=== PATIENT | female | born 1995 | race Caucasian/White ===

== ENCOUNTER 2019-10-04 17:59 | Inpatient (IN) | payer OTHER, SELFPAY ==
[2019-10-04] VITALS (8 sets, daily range): BP systolic 92–125; BP diastolic 44–74; PULSE 73–85; TEMP 37; BMI 23.8
--- NOTE | 2019-10-04 18:30 | LDADM ---
This patient, Dinorah Tellez, was admitted to Labor/Delivery/Recovery 108 on 10/04/19 at 17:59. Plans for labor, pain management and were discussed with patient. Patient/family oriented to hospital policies and general routines including ID bracelet, bed and alarms, visiting hours, pain management, procedures, bathroom and other care routines, personal items, smoking policy, room service/diet and guest tray routines, security routines, and visiting hours. Patient/Family are encouraged to report perceived risks to care and to ask questions if they do not understand what they are told or what they should do. See OBIX for further documentation.
[2019-10-04] MEDS: DINOPROSTONE 10 MG VAG INSERT VAGINAL (18:57)
[2019-10-04 18:59] LABS: Basophils Percent Auto 0.2 % (0.2-1.2); Eosinophils Absolute Auto 0.1 K/mm3 (0-0.3); Eosinophils Percent Auto 1.6 % (0-4.4); Hematocrit 35.9 % (37.0-47.0); Hemoglobin 12.1 g/dL (12.0-15.0); Immature Granulocyte Absolute 0.09 K/mm3 (0.00-0.031); Lymphocytes Absolute Auto 1.68 K/mm3 (0.9-3.2); Lymphocytes Percent Auto 19.5 % (18.3-44.2); Mean Corpuscular HGB Conc 33.7 g/dl (32-36); Mean Corpuscular Hemoglobin 31.4 pg (26-34); Mean Corpuscular Volume 93.2 fl (80-100); Mean Platelet Volume 10.4 fl (7.4-10.4); Monocytes Absolute Auto 0.5 K/mm3 (0.1-0.6); Monocytes Percent Auto 5.3 % (2.6-8.5); Neutrophils Absolute Auto 6.2 K/mm3 (1.3-6.7); Neutrophils Percent Auto 72.4 % (45.5-73.1); Platelet Count Result 278 k/mm3 (150-375); Red Blood Count 3.85 M/mm3 (4.2-5.4); Red Cell Distribution Width 13.3 % (11.5-14.5); White Blood Count 8.6 K/mm3 (4.5-10.0)
[2019-10-05] VITALS (195 sets, daily range): BP systolic 81–135; BP diastolic 39–91; PULSE 48–120; TEMP 36.6; O2SAT 97–100
[2019-10-05] MEDS: LACTATED RINGERS 1,000 ML 125 ML IV CONT ×5 (07:40→21:46)
--- NOTE | 2019-10-05 07:42 | PM.IMHP ---
H&P: HPI History of Present Illness Chief complaint: induction Narrative: Dinorah Tellez is a 24 year old female at 40 weeks and 3 days gestation presenting for elective term induction of labor. DOing well, feels some contractions. No leaking of fluid. Feels good movement. course uncomplicated to this point. Review of Systems Constitutional: Constitutional: Reports no additional constitutional complaints, Denies body ache(s), Denies chills, Denies fatigue and Denies weakness Eyes: Eyes: Denies blurry vision ENT: Denies nasal congestion Cardiovascular: Cardiovascular: Denies chest pain and Denies lightheadedness Respiratory: Respiratory: Denies chest congestion, Denies cough and Denies dyspnea Gastrointestinal: Gastrointestinal: Denies abdominal pain, Denies nausea and Denies vomiting Genitourinary: Genitourinary: Denies nocturia and Denies dysuria Musculoskeletal: Musculoskeletal: Denies myalgias Neurologic: Denies headache(s) Psychiatric: Psychiatric: Denies anxiety [facility] Family History Family History (Updated 09/03/19 @ 13:09 by Gal Lockhart RN) Other Unknown family medical history Social History Social History Smoking status: Never smoker Substance use: never Gender identity (if verbalized by the patient): Female Spiritual care concerns: No Meds Home Medications and Allergies Home Medications Medication Instructions Recorded Confirmed Type PNV cmb#95-ferrous fumarate-FA 1 tablet PO DAILY 09/03/19 09/03/19 History [] Allergies Allergy/AdvReac Type Severity Reaction Status Date / Time No Known Allergies Allergy Mild Unverified 05/11/09 19:13 Vital Signs Vital Signs - 24 hr 10/04/19 19:00 10/04/19 19:02 10/04/19 19:15 Temperature 37.0 C Pulse Rate 83 85 Blood Pressure 123/71 123/73 10/04/19 19:30 10/04/19 19:46 10/04/19 20:01 Temperature Pulse Rate 85 80 83 Blood Pressure 125/59 L 123/60 93/44 L 10/04/19 20:15 10/04/19 20:30 10/05/19 00:50 Temperature Pulse Rate 78 73 80 Blood Pressure 92/47 L 114/74 112/66 10/05/19 01:00 10/05/19 04:47 10/05/19 05:00 Temperature Pulse Rate 80 75 74 Blood Pressure 110/66 111/60 110/67 10/05/19 05:15 10/05/19 05:30 10/05/19 05:45 Temperature Pulse Rate 80 84 76 Blood Pressure 105/64 110/65 110/64 10/05/19 06:00 10/05/19 06:15 10/05/19 06:30 Temperature Pulse Rate 73 72 77 Blood Pressure 104/53 L 105/51 L 111/65 10/05/19 06:45 10/05/19 07:00 Temperature Pulse Rate 79 79 Blood Pressure 106/62 114/65 Exam Const: General: comfortable and no acute distress Resp: Effort & Inspection: normal respiratory effort Auscultation: clear to auscultation bilaterally Cardio: Rate: regular rate GI: GI Palp: Yes Soft to palpation and No Tenderness to palpation present (GI) : Other: Cevix fingetip/70% effaced Skin: General skin exam: normal color Psych: Mental Status: mental status grossly normal H&P: Results Labs Labs: Short CBC 10/04/19 Range/Units 18:27 WBC 8.6 (4.5-10.0) K/mm3 Hgb 12.1 (12.0-15.0) g/dL Hct 35.9 L (37.0-47.0) % Plt Count 278 (150-375) k/mm3 Assessment and Plan Assessment and plan (1) Elective induction of labor planned: Status: Acute Assessment and Plan: Pitocin per protocol for induction of labor Pain management as requested AROM when indicated
[2019-10-05 09:23] LABS: Rapid Plasma Reagin Non-Reactive (NonReactive)
--- NOTE | 2019-10-05 14:36 | WPDANESEPPF ---
Anes - Initial Pre Proc Eval Date/Time: 10/05/19 14:36 Surgeon: Leo David MD Pre Op Diagnosis: induction Patient Data Age: 24 Gender: F Height: 5 ft 4 in Weight: 63 kg Last Vital Signs Temp 36.6 C 10/05/19 12:26 Pulse 85 10/05/19 14:34 BP 116/62 10/05/19 14:34 Pulse Ox 100 10/05/19 14:33 Allergies Allergy/AdvReac Type Severity Reaction Status Date / Time No Known Allergies Allergy Mild Unverified 05/11/09 19:13 Home Medications Medication Instructions Recorded Confirmed Type PNV cmb#95-ferrous fumarate-FA 1 tablet PO DAILY 09/03/19 09/03/19 History [] Laboratory Tests 10/04/19 10/04/19 10/04/19 18:27 18:27 18:27 WBC 8.6 K/mm3 K/mm3 (4.5-10.0) RBC 3.85 M/mm3 L M/mm3 (4.2-5.4) Hgb 12.1 g/dL g/dL (12.0-15.0) Hct 35.9 % L % (37.0-47.0) MCV 93.2 fl fl (80-100) MCH 31.4 pg pg (26-34) MCHC 33.7 g/dl g/dl (32-36) RDW 13.3 % % (11.5-14.5) Plt Count 278 k/mm3 k/mm3 (150-375) MPV 10.4 fl fl (7.4-10.4) Immature Gran % (Auto) 1.0 % H % (0-0.5) Neut % (Auto) 72.4 % % (45.5-73.1) Lymph % (Auto) 19.5 % % (18.3-44.2) [place] % (Auto) 5.3 % % (2.6-8.5) Eos % (Auto) 1.6 % % (0-4.4) Baso % (Auto) 0.2 % % (0.2-1.2) Lymph # (Auto) 1.68 K/mm3 K/mm3 (0.9-3.2) [place] # (Auto) 0.5 K/mm3 K/mm3 (0.1-0.6) Eos # (Auto) 0.1 K/mm3 K/mm3 (0-0.3) Baso # (Auto) 0.0 K/mm3 K/mm3 (0.0-0.1) Abs Immat Gran (auto) 0.09 K/mm3 H K/mm3 (0.00-0.031) Absolute Neuts (auto) 6.2 K/mm3 K/mm3 (1.3-6.7) Absolute Nucleated RBC 0.0 K/mm3 K/mm3 (0.0-0.012) Nucleated RBC % 0.0 % % (0.0-0.2) RPR Non-reactive (NonReactive) Blood Type O Positive Antibody Screen Negative Patient hx anesthesia problems: none Family hx anesthesia problems: none PMFSH Family History Family History Other Unknown family medical history Social History Social History Smoking status: Never smoker Substance use: never Gender identity (if verbalized by the patient): Female Spiritual care concerns: No Anes - Eval Final PreProcedure Day of Procedure 10/05/19 14:36 Patient weight: normal Neurological: alert and oriented ASA classification: II Emergent: no Anesthetic plan: proceed Anesthesia type and monitoring: regional epidural and standard monitoring Informed Consent: The patient's anesthetic plan and its attendant risks and benefits were discussed with the patient/family/POA. Questions were solicited and answers provided to the satisfaction of the patient/family/POA.
[2019-10-06] VITALS (100 sets, daily range): BP systolic 92–136; BP diastolic 43–102; PULSE 83–177; RESP 16–18; TEMP 36.8–39.7; O2SAT 79–100
[2019-10-06] MEDS: AMPICILLIN 2 GM/NS 100 ML 2 GM/100 ML BAG IVPB (02:27)
[2019-10-06] MEDS: ONDANSETRON INJ 4 MG/2 ML VIAL IV PUSH (03:19)
[2019-10-06] MEDS: AMPICILLIN 1 GM/NS 50 ML 1 GM/50 ML BAG IVPB (06:29)
[2019-10-06] MEDS: ACETAMINOPHEN 500 MG TABLET 1000 MG (07:02)
[2019-10-06] MEDS: BENZOCAINE 20% AER SPR (*SP) 56 GM CAN 1 SPRAY TOPICAL (08:09)
[2019-10-06] MEDS: WITCH HAZEL 40 PADS 1 PAD TOPICAL (08:09)
--- NOTE | 2019-10-06 11:21 | OBPPTRN ---
Patient transferred to post room #285 via W/C. Support person present. Oriented to unit, room, information board, rooming in, admission packet and security measures. Patient verbalizes understanding.
--- NOTE | 2019-10-06 20:33 | OP_ITS ---
DATE OF PROCEDURE: 10/06/2019 PROCEDURE: Normal spontaneous vaginal delivery. PRE-DELIVERY DIAGNOSES: 1. A 40-week term gestation. 2. Chorioamnionitis. POST-DELIVERY DIAGNOSES: 1. A 40-week term gestation. 2. Chorioamnionitis. 3. Normal spontaneous vaginal delivery. ANESTHESIA: Epidural. ESTIMATED BLOOD LOSS: 300 mL. FINDINGS: 1. Single live male born on October 06, 2019 at 07:06 a.m. Weight 7 pounds 6 ounces. Apgars 7 and 8. 2. Meconium-stained fluid. 3. Second-degree perineal laceration. SPECIMEN: Placenta LACERATIONS: Second-degree perineal lacerations repaired with 2-0 Vicryl. BRIEF HISTORY: A 24-year-old G1 at 40 weeks and 3 days' gestation initially presented for elective induction of labor with Cervidil use for cervical ripening followed by Pitocin. The patient spiked a fever suspected chorioamnionitis. Antibiotics were started. The patient progressed to complete dilation. DESCRIPTION OF PROCEDURE: Once the patient was noted to be complete and ready to push, the labor bed was broken down and the patient's legs were put in stirrups for support with contractions and maternal efforts. The presented in OA position. Nuchal cord was noted and was easily reduced at the perineum. Gentle downward traction applied. Anterior shoulder delivered without any incident, followed by the posterior shoulder, followed by the rest of the body. The was then placed on mother's abdomen. Meconium-stained fluid was noted. The cord was clamped and cut. Cord blood was collected. Placenta was delivered with gentle downward traction on the umbilical cord. Fundal massage was applied. Bleeding started to slow down. An exam was performed to identify any lacerations. A second-degree perineal laceration was noted. This was repaired with 2-0 Vicryl. Local lidocaine was used for a local anesthetic. After repair was completed, good hemostasis was noted. The patient tolerated the procedure well and is resting in the labor room in stable condition. All sponge and instrument counts were correct at the end of the procedure. D I MT: Maylin BARNETT
[2019-10-07] MEDS: IBUPROFEN 600 MG TABLET PO ×2 (05:24→17:51)
[2019-10-07 05:51] LABS: Hematocrit 31.3 % (37.0-47.0); Hemoglobin 10.5 g/dL (12.0-15.0)
[2019-10-07 07:40] VITALS: BP 106/57; PULSE 78; RESP 16; TEMP 36.8; O2SAT 99
--- NOTE | 2019-10-07 08:11 | WPDANLDPN2 ---
Anes-Prog Note L&D Date/Time: 10/07/19 08:11 Comfortable throughout: labor and delivery Neuraxial method: epidural Epidural/Spinal procedure site: clean & non-tender Neuro status: Neuro function grossly intact. Cardiovascular status: normal Respiratory status: normal Airway patency: baseline Mental status: baseline Post-Op hydration status: normal Vital Signs: Last Vital Signs Temp 98.9 F 10/06/19 20:05 Pulse 103 H 10/06/19 20:05 Resp 18 10/06/19 20:05 BP 101/46 L 10/06/19 20:05 Pulse Ox 98 10/06/19 20:05 Patient feedback: Patient satisfied with anesthetic care.
[2019-10-07] MEDS: WITCH HAZEL 40 PADS 1 PAD TOPICAL (09:17)
[2019-10-07] MEDS: MULTIVIT/MIN/PREN/FOL AC/IRON TABLET 1 TAB PO (09:17)
--- NOTE | 2019-10-07 11:52 | PM.OBPNVD ---
OB - PN: Subj Subjective Date/time seen: 10/07/19 11:52 Interval history: 24yo s/p on 10/05. Doing well, some cramping. Lochia is decreasing. Bottle feeding. Tolerating diet. No issues/complaints Patient comments: no complaints and pain well controlled baby status: doing well feeding status: exclusively bottle feeding OB - PN: Obj Data Labs CBC & Chem 7: 10/07/19 05:21 Labs: Laboratory Results - last 24 hr 10/07/19 05:21 Hgb 10.5 L Hct 31.3 L OB - PN A/P Assessment and Plan (1) (normal spontaneous vaginal delivery): Code(s): O80 - Encounter for full-term uncomplicated delivery Status: Acute Assessment and Plan: routine care pain management ambulate Time Spent With Patient Time: Total time spent is greater than 50% in coordination of care (as documented) at patient's floor/unit and/or counseling patient: Review of Systems Review of Systems: All systems reviewed & are unremarkable except as noted in HPI and below Exam Const: General: comfortable, no acute distress, alert and awake Orientation/consciousness: patient oriented x3 Resp: Effort & Inspection: normal respiratory effort Cardio: Rate: regular rate GI: Other: soft, nondistended, nontender, fundus firm Psych: Appearance: grossly normal Mental Status: mental status grossly normal Affect: normal affect Attitude: cooperative Judgement: Good judgement present (Psych)
--- NOTE | 2019-10-08 09:46 | PM.OBDSVD ---
DS: Diagnosis Admitting Diagnosis Admitting Diagnosis: Encounter for full-term uncomplicated delivery Discharge Diagnosis (1) (normal spontaneous vaginal delivery): Code(s): O80 - Encounter for full-term uncomplicated delivery Status: Acute OB - DS: Summary OB Procedures : None OB Procedures Intrapartum: Spontaneous Vag Delivery OB Procedures: : None Peripartum Data Delivery Method: Natural Vaginal Laceration description: Perineal - 2nd Degree complications: none Status at Discharge Functional status at discharge: independent ambulation Overall status at discharge: patient is progressing back to baseline Time Spent with Patient Time attestation: Total time spent providing and/or coordinating discharge services: Exam Const: General: comfortable, no acute distress, alert and awake Orientation/consciousness: patient oriented x3 Resp: Effort & Inspection: normal respiratory effort Cardio: Rate: regular rate GI: Inspection: non-distended GI Palp: Yes Soft to palpation Psych: Appearance: grossly normal Mental Status: mental status grossly normal Affect: normal affect Attitude: cooperative Thought content: Yes Normal thought content present Judgement: Good judgement present (Psych) DS: Data Data Completed and Pending Pending studies at discharge: Pending at discharge 10/06/19 11:30 Surgical [PTH] Routine Discharge Plan Discharge Attending physician on discharge: Yanet Boo Discharging Clinician: Yanet Boo Patient Disposition: Home, Self-Care Activity: as tolerated Diet: regular Patient Instructions: Antibiotic Form Stand Alone Forms: General Discharge Information Follow-up/Referrals: Yanet Boo DO [Physician] - Discharge Medications: New polysaccharide iron complex 150 mg iron Capsule 150 mg PO BIDWM Qty: 60 RF: 0 docusate sodium 100 mg Capsule 100 mg PO BID PRN (Reason: Constipation) Qty: 60 RF: 0 ibuprofen 600 mg Tablet 600 mg PO Q6H PRN (Reason: Cramping) Qty: 90 RF: 0 Continued PNV cmb#95-ferrous fumarate-FA [] 28 mg iron- 800 mcg Tablet 1 tablet PO DAILY RF: 0 Date of admission: 10/04/19 17:59 Primary Care Provider: UNKNOWN,DOCTOR Admitting Provider: Leo David Attending physician on admission: Leo David
[2019-10-09 08:21] VITALS: BP 104/61; PULSE 82; RESP 18; TEMP 36.7
== END 2019-10-08 11:19 | disposition home or self-care (01) | DRG 805 ==
LOC: ANHLDR 10-05 13:24 → ANHOB2 10-07 11:46 → ANHLDR 10-09 12:01 → ANHOB2 10-09 12:01
PROVIDERS: Admitting Provider Obstetrics & Gynecology; Visit Provider Obstetrics & Gynecology
DX: O77.0 Labor and delivery complicated by meconium in amniotic fluid (principal); O41.1230 Chorioamnionitis, third trimester, not applicable or unspecified; Z37.0 Single live birth; Z3A.40 40 weeks gestation of pregnancy; O70.1 Second degree perineal laceration during delivery
CPT/HCPCS: 36415; 85014; 85018; 85025; 86592; 86850; 86900; 86901; 88307; A9270; J0131; J0290; J2405; J2590; J2795; J7120

== ENCOUNTER 2021-06-18 17:15 | Inpatient (IN) | payer OTHER, SELFPAY ==
[2021-06-18] VITALS (69 sets, daily range): BP systolic 94–129; BP diastolic 39–103; PULSE 33–95; TEMP 37.1–37.2; O2SAT 80–100; BMI 23.4
[2021-06-18 18:01] LABS: Basophils Percent Auto 0.4 % (0.2-1.2); Eosinophils Absolute Auto 0.1 K/mm3 (0-0.3); Eosinophils Percent Auto 0.9 % (0-4.4); Hemoglobin 12.7 g/dL (12.0-15.0); Immature Granulocyte Absolute 0.07 K/mm3 (0.00-0.031); Immature Granulocyte Percent A 0.8 % (0-0.5); Lymphocytes Absolute Auto 1.58 K/mm3 (0.9-3.2); Lymphocytes Percent Auto 18.5 % (18.3-44.2); Mean Corpuscular HGB Conc 34.3 g/dl (32-36); Mean Corpuscular Hemoglobin 32.7 pg (26-34); Mean Corpuscular Volume 95.4 fl (80-100); Mean Platelet Volume 9.7 fl (7.4-10.4); Monocytes Absolute Auto 0.3 K/mm3 (0.1-0.6); Monocytes Percent Auto 3.5 % (2.6-8.5); Neutrophils Absolute Auto 6.5 K/mm3 (1.3-6.7); Neutrophils Percent Auto 75.9 % (45.5-73.1); Platelet Count Result 238 k/mm3 (150-375); Red Blood Count 3.88 M/mm3 (4.2-5.4); Red Cell Distribution Width 13.2 % (11.5-14.5); White Blood Count 8.5 K/mm3 (4.5-10.0)
--- NOTE | 2021-06-18 18:02 | LDADM ---
This patient, Dinorah Tellez, was admitted to Labor/Delivery/Recovery 109 on 06/18/21 at 17:15. Plans for labor, pain management and were discussed with patient. Patient/family oriented to hospital policies and general routines including ID bracelet, bed and alarms, pain management, procedures, bathroom and other care routines, personal items, smoking policy, room service/diet and guest tray routines, infant security routines, call light and visiting hours. Patient/Family are encouraged to report perceived risks to care and to ask questions if they do not understand what they are told or what they should do. See OBIX for further documentation.
[2021-06-18] MEDS: LACTATED RINGERS 1,000 ML 125 ML IV CONT ×3 (18:35→23:54)
[2021-06-18] MEDS: OXYTOCIN 30 UNITS/NS 500 ML 30 UNITS/500 ML BAG IV CONT (18:41)
--- NOTE | 2021-06-18 20:28 | P.HP_ITS ---
H&P: HPI History of Present Illness Date/Time: 06/18/21 20:25 Dinorah is a 25yo @ 39.0wks (MICKI 06/[birth year]) who presents for elective induction of labor. She reports good movements. Irregular contractions. No VB or LOF. She has had regular care. Her is complicated by: - Varicella non-immune - Elevated glucola; normal 3hr OGTT - Request for sterilization (desires laparoscopic salpingectomy) - Mild anemia on iron daily Chief Complaint: induction of labor Review of Systems Review of Systems: All systems reviewed & are unremarkable except as noted in HPI and below (HPI) [facility] Family History Family History Other Unknown family medical history Social History Social History Smoking status: Never smoker Additional smoking assessment comments: FOB vapes but not around the child Substance use: never Gender identity (if verbalized by the patient): Female Spiritual care concerns: No Meds Home Medications and Allergies Home Medications Medication Instructions Recorded Confirmed Type PNV cmb#95-ferrous fumarate-FA 1 tablet PO DAILY 09/03/19 06/18/21 History [] docusate sodium 100 mg PO BID PRN #60 cap 10/07/19 06/18/21 Rx ibuprofen 600 mg PO Q6H PRN #90 tablet 10/07/19 06/18/21 Rx polysaccharide iron complex 150 mg PO BIDWM #60 cap 10/07/19 06/18/21 Rx Allergies Allergy/AdvReac Type Severity Reaction Status Date / Time No Known Allergies Allergy Mild Verified 06/18/21 18:05 Exam Const: General: cooperative, healthy appearing, comfortable and no acute distress Resp: Effort & Inspection: normal respiratory effort Cardio: Rate: regular rate GI: GI Palp: No abdominal tenderness and Yes Soft to palpation : Other: FHT's: 130's/ mod vel/ + accels/ no decels - cat 1 TOCO: irregular ctx's Cervix: 3/50/-2 Membranes: AROM, clear 2014 Presentation: cephalic Skin: General skin exam: normal color Neuro: General: patient oriented x3 Extrem: General: normal to inspection Psych: Appearance: grossly normal Affect: normal affect Attitude: cooperative Assessment and Plan Assessment and plan (1) Elective induction of labor planned: Status: Acute (2) : Qualifiers: Weeks of gestation: 39 weeks Qualified Code(s): Z3A.39 - 39 weeks gestation of Code(s): Z34.90 - Encounter for supervision of normal , unspecified, unspecified trimester Status: Acute Additional Plan - Admit to L&D for elective IOL - Pitocin per protocol - Continuous monitoring - Anesthesia consult PRN pain - GBS negative - LSC bilateral salpingectomy planned for
--- NOTE | 2021-06-18 20:29 | WPDHPUPDATE1 ---
History and Physical Update Update Date/Time: 06/18/21 20:29 History and Physical has been reviewed, including an updated exam of the patient. There are NO changes in the patient's condition. Risks, benefits, and alternatives have been discussed and questions answered. Patient agrees to proceed with procedure.
--- NOTE | 2021-06-18 21:00 | WPDANESEPPF ---
Anes - Initial Pre Proc Eval Procedure: labor epidural Date/Time: 06/18/21 21:00 Surgeon: Leo David MD Pre Op Diagnosis: labor pain Pre Op Diagnosis: IOL Patient Data Age: 25 Gender: F Height: 1.6 m Weight: 60 kg Last Vital Signs Temp 37.2 C 06/18/21 20:23 Pulse 80 06/18/21 20:58 BP 122/68 06/18/21 20:58 Pulse Ox 98 06/18/21 20:58 Allergies Allergy/AdvReac Type Severity Reaction Status Date / Time No Known Allergies Allergy Mild Verified 06/18/21 18:05 Home Medications Medication Instructions Recorded Confirmed Type PNV cmb#95-ferrous fumarate-FA 1 tablet PO DAILY 09/03/19 06/18/21 History [] docusate sodium 100 mg PO BID PRN #60 cap 10/07/19 06/18/21 Rx ibuprofen 600 mg PO Q6H PRN #90 tablet 10/07/19 06/18/21 Rx polysaccharide iron complex 150 mg PO BIDWM #60 cap 10/07/19 06/18/21 Rx Laboratory Tests 06/18/21 06/18/21 06/18/21 17:47 17:47 17:47 WBC 8.5 K/mm3 K/mm3 (4.5-10.0) RBC 3.88 M/mm3 L M/mm3 (4.2-5.4) Hgb 12.7 g/dL g/dL (12.0-15.0) Hct 37.0 % % (37.0-47.0) MCV 95.4 fl fl (80-100) MCH 32.7 pg pg (26-34) MCHC 34.3 g/dl g/dl (32-36) RDW 13.2 % % (11.5-14.5) Plt Count 238 k/mm3 k/mm3 (150-375) MPV 9.7 fl fl (7.4-10.4) Immature Gran % (Auto) 0.8 % H % (0-0.5) Neut % (Auto) 75.9 % H % (45.5-73.1) Lymph % (Auto) 18.5 % % (18.3-44.2) [place] % (Auto) 3.5 % % (2.6-8.5) Eos % (Auto) 0.9 % % (0-4.4) Baso % (Auto) 0.4 % % (0.2-1.2) Lymph # (Auto) 1.58 K/mm3 K/mm3 (0.9-3.2) [place] # (Auto) 0.3 K/mm3 K/mm3 (0.1-0.6) Eos # (Auto) 0.1 K/mm3 K/mm3 (0-0.3) Baso # (Auto) 0.0 K/mm3 K/mm3 (0.0-0.1) Abs Immat Gran (auto) 0.07 K/mm3 H K/mm3 (0.00-0.031) Absolute Neuts (auto) 6.5 K/mm3 K/mm3 (1.3-6.7) Absolute Nucleated RBC 0.0 K/mm3 K/mm3 (0.0-0.012) Nucleated RBC % 0.0 % % (0.0-0.2) RPR Pending Blood Type O Positive Antibody Screen Negative Patient hx anesthesia problems: none Family hx anesthesia problems: none Results Review: All pre-operative results and documents have been reviewed as part of the pre-operative evaluation. [facility] Family History Family History Other Unknown family medical history Social History Social History Smoking status: Never smoker Additional smoking assessment comments: FOB vapes but not around the child Substance use: never Gender identity (if verbalized by the patient): Female Spiritual care concerns: No Anes - Eval Final PreProcedure Day of Procedure 06/18/21 21:00 Patient weight: thin Heart: regular rate and rhythm Lungs: clear to auscultation and normal air movement Airway: Mallampati scale Neurological: alert and oriented ASA classification: II Emergent: no Anesthetic plan: proceed Anesthesia type and monitoring: regional epidural and standard monitoring Results Review: All pre-operative results and documents have been reviewed as part of the pre-operative evaluation. Informed Consent: The patient's anesthetic plan and its attendant risks and benefits were discussed with the patient/family/POA. Questions were solicited and answers provided to the satisfaction of the patient/family/POA.
[2021-06-19] VITALS (37 sets, daily range): BP systolic 78–145; BP diastolic 34–114; PULSE 59–195; RESP 16–18; TEMP 36.3–37.7; O2SAT 89–100
--- NOTE | 2021-06-19 01:14 | PM.OBPRVD ---
OB - Delivery Note Procedure Delivery date: 06/19/21 events: Labor Induction Intrapartal events: Precipitous Labor < 3 hours Induction method: per pitocin protocol Delivery augmentation: rupture of membranes Delivery monitor: external FHT and external uterine Route of delivery: Laceration Description: Periurethral (right) and Perineal - 1st Degree Delivery repair: vicryl Specimen: No Quantitative Blood Loss (ml): 150 Anesthesia type: Epidural Disposition: floor [place] Baby Date of : 06/19/[birth year] Time of : 00:56 Weeks of gestation at delivery: 39 Infant gender: Male Weight (pounds): 7 Weight (ounces): 9 presentation: vertex position: Left Occiput Anterior Placenta delivery description: Expressed cord vessel description: 3 Vessels and Delayed Cord Clamping score one minute: 8 score five minutes: 9 Narrative: Dinorah rapidly progressed from 4 to completely dilated in less than 2 hours. She had strong desire to push. She pushed with good maternal effort for approximately 5 minutes. She delivered the head over intact perineum. No nuchal cord was palpated. She easily delivered the 's shoulders and body without complication. The was immediately placed skin to skin and stimulated, he then had spontaneous cry. Delayed cord clamping was performed. The umbilical cord was then clamped and cut. With Pitocin running and gentle downward traction on the cord, the placenta delivered without complications. The patient was examined and a first-degree perineal and right periurethral lacerations were noted. They were repaired in the normal fashion using 2-0 Vicryl. Bimanual massage was performed and good uterine tone with minimal bleeding was noted. Sponge, lap, instrument, and needle counts were correct at the end of the procedure. Mom and baby were left in the birthing suite in stable condition.
[2021-06-19] MEDS: OXYTOCIN 30 UNITS/NS 500 ML 30 UNITS/500 ML BAG 125 UNITS IV CONT (01:39)
[2021-06-19] MEDS: ONDANSETRON INJ 4 MG/2 ML VIAL IV PUSH (02:18)
--- NOTE | 2021-06-19 03:37 | PC.NURSE ---
Patient transferred to post room #284 via wheelchair. Support person present. Oriented to unit, room, information board, rooming in, admission packet and security measures. Patient verbalizes understanding.
[2021-06-19 06:11] LABS: Rapid Plasma Reagin Non-Reactive (NonReactive)
--- NOTE | 2021-06-19 07:38 | WPDANLDPN2 ---
Anes-Prog Note L&D Date/Time: 06/19/21 07:38 Comfortable throughout: labor and delivery Neuraxial method: epidural Epidural/Spinal procedure site: clean & non-tender Neuro status: Neuro function grossly intact. Cardiovascular status: normal Respiratory status: normal Airway patency: baseline Mental status: baseline Post-Op hydration status: normal Vital Signs: Last Vital Signs Temp 36.3 C L 06/19/21 03:50 Pulse 73 06/19/21 03:50 Resp 16 06/19/21 03:50 BP 110/62 06/19/21 03:50 Pulse Ox 100 06/19/21 01:07 Pain score (VAS): 0 I/O: Intake & Output 06/18/21 06/18/21 06/19/21 15:59 23:59 07:59 Intake Total 1999 Balance 1999 Post-procedural complaints: none Patient feedback: Patient satisfied with anesthetic care.
[2021-06-19] MEDS: IBUPROFEN 600 MG TABLET PO ×2 (08:26→18:47)
[2021-06-20 00:45] VITALS: BP 96/62; PULSE 60; RESP 18; TEMP 36.4; O2SAT 100
[2021-06-20] MEDS: IBUPROFEN 600 MG TABLET PO (04:48)
[2021-06-20 05:17] LABS: Hematocrit 34.3 % (37.0-47.0); Hemoglobin 11.4 g/dL (12.0-15.0)
--- NOTE | 2021-06-20 07:07 | PM.OBPNVD ---
OB - PN: Subj Subjective Date/time seen: 06/20/21 07:05 PPD#1 Dinorah reports doing well today. She reports her pain is controlled. Her bleeding is [employer]. She has tolerated regular diet, voided, passed gas, and ambulated. She is bottle feeding. She would like to go home today. She sade CP, SOB, BARRY, vision change, fever, chills, N/v, dizziness or palpitations. OB - PN: Obj Data Labs CBC & Chem 7: 06/20/21 04:44 Labs: Laboratory Results - last 24 hr 06/20/21 04:44 Hgb 11.4 L Hct 34.3 L OB - PN A/P Assessment and Plan (1) (normal spontaneous vaginal delivery): Code(s): O80 - Encounter for full-term uncomplicated delivery Status: Acute Plan day: 1 Plan: routine care and discharge home Comments: - f/u in 4 weeks - Pelvic rest and take meds as prescribed - ER return precautions: fever, bleeding, n/v/abd pain, HTN Time Spent With Patient Time: Total time spent is greater than 50% in coordination of care (as documented) at patient's floor/unit and/or counseling patient: Review of Systems Review of Systems: All systems reviewed & are unremarkable except as noted in HPI and below (HPI) Exam Const: General: cooperative, healthy appearing, comfortable and no acute distress Resp: Effort & Inspection: normal respiratory effort Auscultation: clear to auscultation bilaterally Cardio: Rate: regular rate GI: Inspection: non-distended GI Palp: No abdominal tenderness and Yes Soft to palpation Auscultation: normal bowel sounds : Other: fundus firm Skin: General skin exam: normal color Neuro: General: patient oriented x3 Extrem: General: normal to inspection Psych: Appearance: grossly normal Affect: normal affect Attitude: cooperative
[2021-06-20 07:35] VITALS: BP 108/63; PULSE 67; RESP 16; TEMP 37.1; O2SAT 97
[2021-06-21 08:46] VITALS: BP 113/71; PULSE 74; RESP 16; TEMP 36.8; O2SAT 99
--- NOTE | 2021-06-24 08:40 | PM.OBDSVD ---
DS: Admitting Diagnosis Discharge Date 06/20/21 Admitting Diagnosis induction of labor DS: Discharge Diagnosis Discharge Diagnosis (1) (normal spontaneous vaginal delivery): Code(s): O80 - Encounter for full-term uncomplicated delivery Status: Acute OB - DS: Summary OB Procedures : Ultrasound OB Procedures Intrapartum: Spontaneous Vag Delivery OB Procedures: : None Peripartum Data Delivery Method: Natural Vaginal Laceration Description: Periurethral and Perineal - 1st Degree complications: none [place] 1: Gender: Male Disposition of : home Status at Discharge Functional status at discharge: independent ambulation Overall status at discharge: patient is back to baseline Time Spent with Patient Time attestation: Total time spent providing and/or coordinating discharge services: Exam Const: General: cooperative, healthy appearing, comfortable and no acute distress Resp: Effort & Inspection: normal respiratory effort Auscultation: clear to auscultation bilaterally Cardio: Rate: regular rate GI: Inspection: normal to inspection and non-distended GI Palp: No abdominal tenderness and Yes Soft to palpation Auscultation: normal bowel sounds : Other: fundus firm Skin: General skin exam: normal color Neuro: General: patient oriented x3 Extrem: General: normal to inspection Psych: Appearance: grossly normal Affect: normal affect Attitude: cooperative Discharge Plan Discharge Attending physician on discharge: Arianna Joshi Discharging Clinician: Arianna Joshi Anticipated Discharge Date/Time: 06/20/21 11:00 Patient Disposition: Home, Self-Care Activity: may shower and pelvic rest Diet: as tolerated and regular Discharge Instructions: Education: Mom and Baby Guide Given to: Mother Follow-Up: Call your delivering provider's office for an appointment to be seen in: 4 Weeks Mom and baby should come to the [facility] for the follow-up appointment. Appointment Date/Time: June 21, 2021 at 9:00 am What to expect at your follow-up visit: Blood Pressure Check Physical Assessment Call [phone] if you are unable to keep your appointment time. BREAST CARE: * Wear a snug supportive bra. * For engorgement discomfort: Bottle Feeding: * May apply ice packs EPISIOTOMY/PERINEAL CARE: * Until bleeding stops, use your harini bottle after urinating * Change your pad frequently throughout the day * You may take sitz baths several times a day (fill your bathtub with warm water and soak for 20 minutes.) Do NOT bathe in the water * No tub baths until seen by your physician - You may shower ACTIVITY: * Rest as much as possible. * Do not exercise or lift anything heavier than your baby (such as laundry or other children.) * Avoid stairs or driving as much as possible. * Do not put anything into the vagina. No douching, tampons, or sexual activity until seen by physician. NOTIFY PHYSICIAN IF YOU HAVE ANY QUESTIONS OR IF ANY OF THE FOLLOWING SYMPTOMS OCCUR: * If your episiotomy or incision becomes red, swollen, or more painful than what you have experienced in the hospital. * If your vaginal bleeding becomes foul smelling. * If your vaginal bleeding becomes more heavy than a period or if your bleeding changes from pink to bright red. However, you may pass an occasional walnut-sized clot once or twice for the first week . * If you experience a sharp, shooting pain in you calves. * If you discover a hard, reddened area on your breast or if you experience flu-like symptoms. DIET: * Eat regular, well-balanced meals. * Drink plenty of fluids daily. If , drink to thirst. Stand Alone Forms: General Discharge Information Follow-up/Referrals: Arianna Joshi MD [Physician] - 4 Weeks Discharge Medications: New acetaminophen [Map
== END 2021-06-20 11:15 | disposition home or self-care (01) | DRG 807 ==
LOC: ANHOB2 06-20 09:39 → ANHLDR 06-21 10:36 → ANHOB2 06-21 10:36
PROVIDERS: Admitting Provider Obstetrics & Gynecology; PCP Physician Assistant; Visit Provider Obstetrics & Gynecology
DX: O62.3 Precipitate labor (principal); Z37.0 Single live birth; O99.02 Anemia complicating childbirth; D64.9 Anemia, unspecified; O70.0 First degree perineal laceration during delivery; O71.82 Other specified trauma to perineum and vulva; O76 Abnormality in fetal heart rate and rhythm complicating labor and delivery; Z3A.39 39 weeks gestation of pregnancy
CPT/HCPCS: 36415; 85014; 85018; 85025; 86592; 86850; 86900; 86901; A9270; J2405; J2590; J2795; J7120

== ENCOUNTER 2023-04-04 11:15 | Outpatient (RCR) | payer BC, MEDICAID, SELFPAY | END 2023-05-20 23:59 | disposition home or self-care (01) | LOC: ANHLAB 11:15 | PROVIDERS: PCP Physician Assistant; Visit Provider Obstetrics & Gynecology | DX: N92.6 Irregular menstruation, unspecified (principal) | CPT/HCPCS: 36415; 84702 ==

== ENCOUNTER 2023-04-04 11:17 | Outpatient (CLI) | payer BC, SELFPAY ==
[2023-04-04 12:06] LABS: Basophils Percent Auto 0.4 % (0.2-1.2); Eosinophils Absolute Auto 0.1 K/mm3 (0-0.3); Eosinophils Percent Auto 1.7 % (0-4.4); Hematocrit 34.4 % (37.0-47.0); Hemoglobin 11.6 g/dL (12.0-15.0); Immature Granulocyte Absolute 0.02 K/mm3 (0.00-0.031); Immature Granulocyte Percent A 0.4 % (0-0.5); Lymphocytes Absolute Auto 1.38 K/mm3 (0.9-3.2); Lymphocytes Percent Auto 26.2 % (18.3-44.2); Mean Corpuscular HGB Conc 33.7 g/dl (32-36); Mean Corpuscular Hemoglobin 31.2 pg (26-34); Mean Corpuscular Volume 92.5 fl (80-100); Mean Platelet Volume 9.6 fl (7.4-10.4); Monocytes Absolute Auto 0.1 K/mm3 (0.1-0.6); Monocytes Percent Auto 2.7 % (2.6-8.5); Neutrophils Absolute Auto 3.6 K/mm3 (1.3-6.7); Neutrophils Percent Auto 68.6 % (45.5-73.1); Platelet Count Result 213 k/mm3 (150-375); Red Blood Count 3.72 M/mm3 (4.2-5.4); Red Cell Distribution Width 13.8 % (11.5-14.5); White Blood Count 5.3 K/mm3 (4.5-10.0)
[2023-04-04 12:56] LABS: HIV 1/2 Ab P24 Ag Result Negative (Negative)
[2023-04-04 14:58] LABS: Hepatitis B Surface Antigen Negative (Negative); Rubella IgG Antibody 21.2 IU/ML
[2023-04-04 17:06] LABS: Rapid Plasma Reagin Non-Reactive (NonReactive)
== END 2023-04-04 11:18 | disposition home or self-care (01) ==
PROVIDERS: PCP Physician Assistant; Visit Provider Obstetrics & Gynecology
DX: Z34.90 Encounter for supervision of normal pregnancy, unspecified, unspecified trimester (principal); Z3A.00 Weeks of gestation of pregnancy not specified
CPT/HCPCS: 36415; 84702; 85025; 86592; 86644; 86703; 86747; 86762; 86787; 86850; 86900; 86901; 87086; 87088; 87340; G0432

== ENCOUNTER 2023-06-17 09:13 | Outpatient (CLI) | payer BC, SELFPAY ==
[2023-06-17 11:01] LABS: Basophils Percent Auto 0.5 % (0.2-1.2); Eosinophils Absolute Auto 0.1 K/mm3 (0-0.3); Eosinophils Percent Auto 1.7 % (0-4.4); Hematocrit 33.5 % (37.0-47.0); Hemoglobin 10.8 g/dL (12.0-15.0); Immature Granulocyte Absolute 0.05 K/mm3 (0.00-0.031); Immature Granulocyte Percent A 0.8 % (0-0.5); Lymphocytes Absolute Auto 1.06 K/mm3 (0.9-3.2); Lymphocytes Percent Auto 16.1 % (18.3-44.2); Mean Corpuscular HGB Conc 32.2 g/dl (32-36); Mean Corpuscular Volume 96.3 fl (80-100); Mean Platelet Volume 9.9 fl (7.4-10.4); Monocytes Absolute Auto 0.2 K/mm3 (0.1-0.6); Monocytes Percent Auto 3.5 % (2.6-8.5); Neutrophils Absolute Auto 5.1 K/mm3 (1.3-6.7); Neutrophils Percent Auto 77.4 % (45.5-73.1); Platelet Count Result 239 k/mm3 (150-375); Red Blood Count 3.48 M/mm3 (4.2-5.4); Red Cell Distribution Width 13.8 % (11.5-14.5); White Blood Count 6.6 K/mm3 (4.5-10.0)
[2023-06-17 11:12] LABS: Glucose 1 Hour PP 50gm Dose 124 mg/dL
[2023-06-17 11:51] LABS: HIV 1/2 Ab P24 Ag Result Negative (Negative)
== END 2023-06-17 09:14 | disposition home or self-care (01) ==
LOC: ANHLAB 09:15
PROVIDERS: PCP Physician Assistant; Visit Provider Obstetrics & Gynecology
DX: Z34.90 Encounter for supervision of normal pregnancy, unspecified, unspecified trimester (principal)
CPT/HCPCS: 36415; 82947; 85025; 86703; G0432

== ENCOUNTER 2023-09-09 05:27 | Inpatient (IN) | payer BC, SELFPAY ==
[2023-09-09] VITALS (179 sets, daily range): BP systolic 84–150; BP diastolic 32–109; PULSE 25–247; RESP 18; TEMP 36.1–36.9; O2SAT 76–100
--- NOTE | 2023-09-09 05:43 | LDADM ---
This patient, Dionrah Tellez, was admitted to Labor/Delivery/Recovery 104 on 09/09/23 at 05:27. Plans for labor, pain management and were discussed with patient. Patient/family oriented to hospital policies and general routines including ID bracelet, bed and alarms, visiting hours, pain management, procedures, bathroom and other care routines, personal items, smoking policy, room service/diet and guest tray routines, security routines, and visiting hours. Patient/Family are encouraged to report perceived risks to care and to ask questions if they do not understand what they are told or what they should do. See OBIX for further documentation.
--- NOTE | 2023-09-09 06:33 | PM.IMHP ---
H&P: HPI History of Present Illness Date/Time: 09/09/23 06:33 Chief Complaint: induction of labor Narrative: Dinorah is a 27yo @ 39.3wks who presents for elective induction of labor. She reports irregular contractions. Good movements. NO VB or LOF. Her is complicated by: - Desires bilateral salpingectomy Review of Systems Constitutional: Constitutional: Denies chills, Denies fever(s) and Denies headache(s) Eyes: Eyes: Denies change in vision ENT: Denies headache(s) Cardiovascular: Cardiovascular: Denies chest pain and Denies dyspnea Respiratory: Respiratory: Denies dyspnea Genitourinary: Genitourinary: Denies abnormal vaginal bleeding and Denies vaginal discharge Neurologic: Denies headache(s) Psychiatric: Psychiatric: Denies anxiety and Denies depression [facility] Family History Family History Father Diabetes mellitus Social History Social History Smoking status: Never smoker Additional smoking assessment comments: FOB vapes but not around the child Alcohol intake: never Substance use: never Substance use type: does not use Do You Feel Safe in your Home?: Yes Lack of Transportation: No Lack of Food: Never True Current Housing: I Have Housing Concerned About Future Housing: No Difficulty Paying Gas/Electric Bills: No Difficulty Paying for Meds: No Currently Unemployed: No Education: High School Diploma/GED Difficulty w/ Childcare or Family Care: No Living arrangements: other Additional living arrangements comments: Occupation/Education: occupation Additional occupation/education comments: self employed Gender identity (if verbalized by the patient): Female Sexual Orientation (if Verbalized by the Patient): Straight or Heterosexual Spiritual care concerns: No Meds Home Medications and Allergies Home Medications Medication Instructions Recorded Confirmed Type vitamin-ferrous fumarate 1 cap PO DAILY 04/03/23 09/03/23 History 65 mg iron-folic acid 1 mg capsule docusate sodium 100 mg capsule 100 mg PO DAILY 08/13/23 09/03/23 History (Dulcolax Stool Softener (docusate)) ferrous sulfate 325 mg (65 mg 325 mg PO DAILY 08/13/23 09/03/23 History iron) tablet Allergies Allergy/AdvReac Type Severity Reaction Status Date / Time No Known Allergies Allergy Mild Verified 09/03/23 13:27 Exam Const: General: cooperative, healthy appearing, comfortable and no acute distress Nutritional Appearance: obese Orientation/consciousness: patient oriented x3 Resp: Effort & Inspection: normal respiratory effort Cardio: Rate: regular rate GI: GI Palp: No abdominal tenderness : Other: FHT's: 120's/ mod vel/ + accels/ no decels - cat 1 TOCO: irregular ctxs Cervix: 3.5/30/-2 Membranes: AROM, clear 0730 Presentation: cephalic Skin: General skin exam: normal color Neuro: General: patient oriented x3 Extrem: General: normal to inspection Psych: Appearance: grossly normal Affect: normal affect Attitude: cooperative Assessment and Plan Assessment and plan (1) Elective induction of labor planned: Status: Acute Plan - Admit to L&D - Pitocin per protocol; AROM performed - Continuous monitoring; currently reassuring - Anesthesia consult PRN pain - GBS negative
--- NOTE | 2023-09-09 07:24 | WPDANESEPP ---
Anes - Eval Pre Procedure Procedure: Labor Epidural Date/Time: 09/09/23 07:24 Surgeon: Adi Preop Diagnosis: Labor Pain Pre Op Diagnosis: IOL Patient Data Age: 27 Gender: F Height: Weight: Last Vital Signs Pulse 81 09/09/23 07:16 BP 109/61 09/09/23 07:16 Allergies Allergy/AdvReac Type Severity Reaction Status Date / Time No Known Allergies Allergy Mild Verified 09/03/23 13:27 Home Medications Medication Instructions Recorded Confirmed Type vitamin-ferrous fumarate 1 cap PO DAILY 04/03/23 09/03/23 History 65 mg iron-folic acid 1 mg capsule docusate sodium 100 mg capsule 100 mg PO DAILY 08/13/23 09/03/23 History (Dulcolax Stool Softener (docusate)) ferrous sulfate 325 mg (65 mg 325 mg PO DAILY 08/13/23 09/03/23 History iron) tablet Laboratory Tests 09/09/23 09/09/23 06:40 06:41 WBC Pending RBC Pending Hgb Pending Hct Pending MCV Pending MCH Pending MCHC Pending RDW Pending Plt Count Pending MPV Pending Immature Gran % (Auto) Pending Neut % (Auto) Pending Lymph % (Auto) Pending [place] % (Auto) Pending Eos % (Auto) Pending Baso % (Auto) Pending Lymph # (Auto) Pending [place] # (Auto) Pending Eos # (Auto) Pending Baso # (Auto) Pending Abs Immat Gran (auto) Pending Absolute Neuts (auto) Pending Absolute Nucleated RBC Pending Nucleated RBC % Pending RPR Pending Patient hx anesthesia problems: none Family hx anesthesia problems: none Results Review: All pre-operative results and documents have been reviewed as part of the pre-operative evaluation. [facility] Family History Family History Father Diabetes mellitus Social History Social History Smoking status: Never smoker Additional smoking assessment comments: FOB vapes but not around the child Alcohol intake: never Substance use: never Substance use type: does not use Do You Feel Safe in your Home?: Yes Lack of Transportation: No Lack of Food: Never True Current Housing: I Have Housing Concerned About Future Housing: No Difficulty Paying Gas/Electric Bills: No Difficulty Paying for Meds: No Currently Unemployed: No Education: High School Diploma/GED Difficulty w/ Childcare or Family Care: No Living arrangements: other Additional living arrangements comments: Occupation/Education: occupation Additional occupation/education comments: self employed Gender identity (if verbalized by the patient): Female Sexual Orientation (if Verbalized by the Patient): Straight or Heterosexual Spiritual care concerns: No Exam Day of Procedure 09/09/23 07:24 Patient weight: normal Lungs: normal air movement Airway: Mallampati scale class II Neurological: alert and oriented
--- NOTE | 2023-09-09 07:37 | WPDHPUPDATE1 ---
History and Physical Update Update Date/Time: 09/09/23 07:37 History and Physical has been reviewed, including an updated exam of the patient. There are NO changes in the patient's condition. Risks, benefits, and alternatives have been discussed and questions answered. Patient agrees to proceed with procedure.
[2023-09-09] MEDS: LACTATED RINGERS 1,000 ML 125 ML IV CONT ×3 (07:41→12:09)
[2023-09-09] MEDS: OXYTOCIN 30 UNITS/NS 500 ML 30 UNITS/500 ML BAG IV CONT (07:43)
[2023-09-09 08:00] LABS: Basophils Percent Auto 0.4 % (0.2-1.2); Eosinophils Absolute Auto 0.1 K/mm3 (0-0.3); Eosinophils Percent Auto 1.6 % (0-4.4); Hemoglobin 11.8 g/dL (12.0-15.0); Immature Granulocyte Percent A 1.3 % (0-0.5); Lymphocytes Percent Auto 22.8 % (18.3-44.2); Mean Corpuscular HGB Conc 32.8 g/dl (32-36); Mean Corpuscular Hemoglobin 31.4 pg (26-34); Mean Corpuscular Volume 95.7 fl (80-100); Mean Platelet Volume 10.6 fl (7.4-10.4); Monocytes Absolute Auto 0.3 K/mm3 (0.1-0.6); Monocytes Percent Auto 4.2 % (2.6-8.5); Neutrophils Absolute Auto 5.2 K/mm3 (1.3-6.7); Neutrophils Percent Auto 69.7 % (45.5-73.1); Platelet Count Result 260 k/mm3 (150-375); Red Blood Count 3.76 M/mm3 (4.2-5.4); Red Cell Distribution Width 14.4 % (11.5-14.5); White Blood Count 7.4 K/mm3 (4.5-10.0)
[2023-09-09 10:42] LABS: Rapid Plasma Reagin Non-Reactive (NonReactive)
--- NOTE | 2023-09-09 12:05 | PM.OBPNLAB ---
Pain Control Date/time seen: 09/09/23 12:05 Pain control: epidural Pelvic Exam Dilation (cm): 6 Effacement (%): 70 station: -2 Amniotic membrane status: Ruptured Contractions Monitor mode: External Contraction frequency: 2 Status status: Category ll Comments: occasional variables/early decels-- overall reassuring Assessment and Plan Pitocin rate (mU/min): 10 Assessment: active labor Plan: continuous present management
--- NOTE | 2023-09-09 13:16 | PM.OBPNLAB ---
Pain Control Date/time seen: 09/09/23 13:16 Pain control: epidural Pelvic Exam Dilation (cm): 6 Effacement (%): 90 station: -2 Amniotic membrane status: Ruptured Contractions Monitor mode: Internal Contraction frequency: 2 Status status: Category ll Assessment and Plan Pitocin rate (mU/min): 10 Assessment: active labor Plan: continuous present management
--- NOTE | 2023-09-09 15:13 | PM.OBPRVD ---
OB - Vaginal Delivery Note Procedure Delivery date: 09/09/23 Events: Elective Induction of Labor Induction method: Per Pitocin Protocol Delivery augmentation: Rupture of Membranes Delivery monitor: External FHT and Internal Uterine Route of delivery: Episiotomy description: None Laceration Description: None Specimen: No Quantitative Blood Loss (ml): 100 Anesthesia type: Epidural Disposition: Floor Complications: No immediate complications Baby Date of : 09/09/23 Time of : 14:40 Weeks of gestation at delivery: 39 (.3) Infant gender: Male Weight (pounds): 7 Weight (ounces): 15 presentation: vertex Placenta delivery description: Expressed Cord Vessel Description: 3 Vessels and Delayed Cord Clamping score one minute: 8 score five minutes: 9 Narrative: Dinorah rapidly progressed to complete dilation with strong desire to push. She pushed for approximately 3 contractions with good maternal effort and delivered the head over intact perineum. No nuchal cord was palpated. She easily delivered the infant's shoulders and body without complication. He was immediately placed skin to skin and had spontaneous cry. His mouth and nose were bulb suctioned. Delayed cord clamping was performed. The umbilical cord was then doubly clamped and cut. A segment of the cord was collected for cord gases. The remaining cord blood was collected for typing. With Pitocin running and gentle downward traction on the cord, the placenta delivered without complications. Bimanual massage was performed and good uterine tone with minimal bleeding was noted. She was examined and no lacerations were identified. Sponge, lap, instrument, needle counts were correct at the end of the procedure. Mom and baby were left bonding in the birthing suite in stable condition. [facility] Delivery Billing Delivery Delivery: Delivery Charge
[2023-09-09] MEDS: OXYTOCIN 30 UNITS/NS 500 ML 30 UNITS/500 ML BAG 125 UNITS IV CONT (15:14)
[2023-09-09] MEDS: ONDANSETRON INJ 4 MG/2 ML VIAL IV PUSH (16:05)
[2023-09-09] MEDS: BENZOCAINE 20% AER SPR (*SP) 56 GM CAN 1 SPRAY TOPICAL (16:27)
[2023-09-09] MEDS: WITCH HAZEL 40 PADS 1 PAD TOPICAL (16:27)
[2023-09-09] MEDS: ACETAMINOPHEN 325 MG TABLET 650 MG PO (16:27)
--- NOTE | 2023-09-09 17:34 | PC.NURSE ---
Patient transferred to post room #281 via wheelchair. Support person present. Oriented to unit, room, information board, rooming in, security measures. Patient verbalizes understanding.
[2023-09-10] VITALS: BP 111/59; PULSE 84; RESP 18; TEMP 37; O2SAT 100
[2023-09-10] MEDS: ACETAMINOPHEN 325 MG TABLET 650 MG PO (04:00)
[2023-09-10 05:05] LABS: Hematocrit 34.3 % (37.0-47.0); Hemoglobin 11.2 g/dL (12.0-15.0)
--- NOTE | 2023-09-10 06:31 | P.PNOB_ITS ---
OB - PN: Subj Subjective Date/time seen: 09/10/23 06:31 Narrative: PPD#1 Dinorah reports doing well today. 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 Her pain is controlled. She is tolerating regular diet, voiding, passing gas, and ambulating without issues. She is bottle feeding. She would like her son circumcised. OB - PN: Obj Data Labs 09/10/23 03:56 Labs: Laboratory Results - last 24 hr 09/09/23 09/09/23 09/10/23 06:41 07:54 03:56 WBC 7.4 RBC 3.76 L Hgb 11.8 L 11.2 L Hct 36.0 L 34.3 L MCV 95.7 MCH 31.4 MCHC 32.8 RDW 14.4 Plt Count 260 MPV 10.6 H Immature Gran % (Auto) 1.3 H Neut % (Auto) 69.7 Lymph % (Auto) 22.8 [place] % (Auto) 4.2 Eos % (Auto) 1.6 Baso % (Auto) 0.4 Lymph # (Auto) 1.70 [place] # (Auto) 0.3 Eos # (Auto) 0.1 Baso # (Auto) 0.0 Abs Immat Gran (auto) 0.10 H Absolute Neuts (auto) 5.2 Absolute Nucleated RBC 0.0 Nucleated RBC % 0.0 RPR Non-reactive Blood Type O Positive Antibody Screen Negative OB - PN A/P Assessment and Plan (1) (normal spontaneous vaginal delivery): Code(s): O80 - Encounter for full-term uncomplicated delivery Status: Acute Plan day: 1 Plan: routine care and discharge home (this afternoon) Comments: - Pelvic rest; take meds as prescribed - ER return precautions: fever, n/v/abd pain, bleeding, HTN Time Spent With Patient Time: Total time spent is greater than 50% in coordination of care (as documented) at patient's floor/unit and/or counseling patient: Review of Systems Constitutional: Constitutional: Denies chills, Denies fever(s) and Denies headache(s) Eyes: Eyes: Denies change in vision ENT: Denies dizziness and Denies headache(s) Cardiovascular: Cardiovascular: Denies chest pain, Denies palpitations and Denies dyspnea Respiratory: Respiratory: Denies cough and Denies dyspnea Gastrointestinal: Gastrointestinal: Denies nausea and Denies vomiting Neurologic: Denies dizziness and Denies headache(s) Endocrine: Endocrine: Denies palpitations Exam Const: General: cooperative, comfortable and no acute distress Orientat ion/consciousness: patient oriented x3 Resp: Effort & Inspection: normal respiratory effort Auscultation: clear to auscultation bilaterally Cardio: Rate: regular rate GI: Inspection: non-distended GI Palp: No abdominal tenderness and Yes Soft to palpation Auscultation: normal bowel sounds : Other: fundus firm Skin: General skin exam: normal color Neuro: General: patient oriented x3 Extrem: General: normal to inspection Psych: Appearance: grossly normal Affect: normal affect Attitude: co operative
--- NOTE | 2023-09-10 07:39 | PM.OBDSVD ---
DS: Admitting Diagnosis Discharge Date 09/10/23 Admitting Diagnosis Induction of labor DS: Discharge Diagnosis Discharge Diagnosis (1) (normal spontaneous vaginal delivery): Code(s): O80 - Encounter for full-term uncomplicated delivery Status: Acute OB - DS: Summary OB Procedures : Ultrasound OB Procedures Intrapartum: Spontaneous Vag Delivery OB Procedures: : None Peripartum Data Infant Delivery Method: Natural Vaginal Laceration Description: None Episiotomy description: None complications: none 1: Gender: Male Disposition of : home Status at Discharge Functional status at discharge: independent ambulation Overall status at discharge: patient is back to baseline Time Spent with Patient Time attestation: Total time spent providing and/or coordinating discharge services: Time spent: Less than 30 minutes Exam Const: General: cooperative, healthy appearing, comfortable and no acute distress Orientation/consciousness: patient oriented x3 Resp: Effort & Inspection: normal respiratory effort Auscultation: clear to auscultation bilaterally Cardio: Rate: regular rate GI: Inspection: non-distended GI Palp: No abdominal tenderness and Yes Soft to palpation Auscultation: normal bowel sounds : Other: fundus firm Skin: General skin exam: normal color Neuro: General: patient oriented x3 Extrem: General: normal to inspection Psych: Appearance: grossly normal Affect: normal affect Attitude: cooperative DS: Data Data Completed and Pending Labs on day of discharge: Labs from last 24 hours 09/10/23 09/09/23 09/09/23 03:56 07:54 06:41 WBC 7.4 RBC 3.76 L Hgb 11.2 L 11.8 L Hct 34.3 L 36.0 L MCV 95.7 MCH 31.4 MCHC 32.8 RDW 14.4 Plt Count 260 MPV 10.6 H Immature Gran % (Auto) 1.3 H Neut % (Auto) 69.7 Lymph % (Auto) 22.8 [place] % (Auto) 4.2 Eos % (Auto) 1.6 Baso % (Auto) 0.4 Lymph # (Auto) 1.70 [place] # (Auto) 0.3 Eos # (Auto) 0.1 Baso # (Auto) 0.0 Abs Immat Gran (auto) 0.10 H Absolute Neuts (auto) 5.2 Absolute Nucleated RBC 0.0 Nucleated RBC % 0.0 RPR Non-reactive Blood Type O Positive Antibody Screen Negative Discharge Plan Discharge Attending physician on discharge: Arianna Joshi Discharging Clinician: Arianna Joshi Anticipated Discharge Date/Time: 09/10/23 16:00 Patient Disposition: Home, Self-Care Activity: may shower and pelvic rest Diet: as tolerated and regular Patient Instructions: Antibiotic Form Stand Alone Forms: General Discharge Information Follow-up/Referrals: Arianna Joshi MD [Physician] - 4 Weeks Discharge Medications: New acetaminophen 325 mg Tablet 650 mg PO Q6H PRN (Reason: Mild Pain (1-3) Or Headache) Qty: 60 0RF ibuprofen 600 mg Tablet 600 mg PO Q6H PRN (Reason: Cramping) Qty: 40 0RF Continued vit-iron fum-folic ac 65 mg iron- 1 mg capsule 1 cap PO DAILY ferrous sulfate 325 mg (65 mg iron) tablet 325 mg PO DAILY docusate sodium [Dulcolax Stool Softener (dss)] 100 mg capsule 100 mg PO DAILY Date of admission: 09/09/23 05:27 Primary Care Provider: Parent,Ivory Diaz Admitting Provider: Arianna Joshi Attending physician on admission: Arianna Joshi Condition: Stable
[2023-09-10 07:50] VITALS: BP 106/64; PULSE 65; RESP 16; TEMP 36.7; O2SAT 99
[2023-09-10 12:04] VITALS: BP 109/62; PULSE 68; RESP 16; TEMP 36.9; O2SAT 99
--- NOTE | 2023-09-10 12:10 | WPDANLDPN2 ---
Anes-Prog Note L&D Date/Time: 09/10/23 12:10 Comfortable throughout: labor and delivery Neuraxial method: epidural Epidural/Spinal procedure site: clean & non-tender Neuro status: Neuro function grossly intact. Cardiovascular status: normal Respiratory status: normal Airway patency: baseline Mental status: baseline Post-Op hydration status: normal Vital Signs: Last Vital Signs Temp 36.9 C 09/10/23 12:04 Pulse 68 09/10/23 12:04 Resp 16 09/10/23 12:04 BP 109/62 09/10/23 12:04 Pulse Ox 99 09/10/23 12:04 O2 Del Method Room Air 09/09/23 16:30 Pain score (VAS): 0/10 Post-procedural complaints: none Patient feedback: Patient satisfied with anesthetic care.
[2023-09-10] MEDS: IBUPROFEN 600 MG TABLET PO (16:22)
[2023-09-11 13:06] VITALS: BP 107/49; PULSE 77; RESP 18; TEMP 36.5; O2SAT 100
== END 2023-09-10 16:32 | disposition home or self-care (01) | DRG 807 ==
LOC: ANHLDR 05:31 → ANHOB2 17:39
PROVIDERS: Admitting Provider Obstetrics & Gynecology; PCP Physician Assistant; Visit Provider Obstetrics & Gynecology
DX: O36.8330 Maternal care for abnormalities of the fetal heart rate or rhythm, third trimester, not applicable or unspecified (principal); Z37.0 Single live birth; Z3A.39 39 weeks gestation of pregnancy
CPT/HCPCS: 36415; 85014; 85018; 85025; 86592; 86850; 86900; 86901; A9270; J2405; J2590; J2795; J7120

== ENCOUNTER 2023-10-14 01:03 | Day surgery (SDC) | payer BC, SELFPAY ==
[2023-10-08 13:08] VITALS: BMI 24.4
--- NOTE | 2023-10-08 13:12 | PC.NURSE ---
Report to the Outpatient Waiting Room, entrance under the green pavilion located off [facility], at time 0915 on date 10/14/23. Planned Procedure Time: 1115. Time changes happen often and if your time is changed the preop area will call you the afternoon before. - You and your visitor will be asked to self-screen and do not enter if you have any COVID symptoms. - A mask is optional within the hospital at this time. Patients may have clear liquids (water, carbonated beverages, clear teas, apple juice) until 3 hours prior to surgery with a maximum of 20 ounces. - No food from midnight until time of surgery Take the following medications with a SIP of water the morning of surgery: NONE DO NOT STOP ANY OF YOUR OTHER PRESCRIPTION MEDICATIONS PRIOR TO SURGERY ?EXCEPT THE FOLLOWING Medications to discontinue per physician: VITAMINS Date to take last dose: 10/10/23 Please no make-up, nail [place], hairspray, perfume, deodorant, or body powder the day of surgery. No jewelry (including any body piercings) or valuables the day of surgery, leave them at home. Please take a shower or bath the night before, or the morning of, surgery with an antibacterial soap. Wear comfortable, loose fitting clothing. - Jewelry must be removed prior to entering the operating room. Rings and piercings that are not removed may be cut off. - The hospital will not accept responsibility for valuables. - Please leave all valuables, including medications, at home the day of surgery. If you are going home after surgery, a licensed milk pickup truck driver must drive you home. - NO public transportation without another adult if you receive anesthesia. - We recommend that an adult stay with you for 24 hours following discharge. - We also recommend that you do not drive, make important decision, drink alcoholic beverages, or take any drugs that were not prescribed by your health care provider for at least 24 hours after your discharge time. Follow any additional instructions given to you from your surgeon. If you or anyone in your household have experienced Covid symptoms in the past week, please notify your surgeon or the nurse liaison at the phone number below for possible testing. Telephone instructions given to PT - ESTHER HARRIS and asked if any additional questions and then verbalized understanding. Patient advised to call surgeon office or pre surgery nurse liaison [phone] if any additional questions.
[2023-10-14] VITALS (9 sets, daily range): BP systolic 89–110; BP diastolic 52–75; PULSE 53–65; RESP 12–16; TEMP 36.7; O2SAT 100
--- NOTE | 2023-10-14 07:26 | WPDHPUPDATE1 ---
History and Physical Update Update Date/Time: 10/14/23 07:26 History and Physical has been reviewed, including an updated exam of the patient. There are NO changes in the patient's condition. Risks, benefits, and alternatives have been discussed and questions answered. Patient agrees to proceed with laparoscopic bilateral salpingectomy.
[2023-10-14] MEDS: LACTATED RINGERS 1,000 ML 30 ML IV CONT (10:04)
[2023-10-14] MEDS: ACETAMINOPHEN 500 MG TABLET 1000 MG PO (10:04)
[2023-10-14] MEDS: KETOROLAC 15 MG/ML VIAL (*BKC) IV PUSH (10:04)
--- NOTE | 2023-10-14 11:28 | WPDANESEPPF ---
Anes - Initial Pre Proc Eval Procedure: Operation Date: 10/14/23 11:15 Proposed Procedures p Bilateral Laparoscopic Salpingectomy - Arianna Joshi MD Date/Time: 10/14/23 11:28 Surgeon: Arianna Joshi MD Pre Op Diagnosis: Desires Sterilization Patient Data Age: 28 Gender: F Height: 1.52 m Weight: 61.2 kg Last Vital Signs Temp 98.1 F 10/14/23 09:45 Pulse 61 10/14/23 09:45 Resp 16 10/14/23 09:45 BP 110/70 10/14/23 09:45 Pulse Ox 100 10/14/23 09:45 O2 Del Method Room Air 10/14/23 09:45 Allergies Allergy/AdvReac Type Severity Reaction Status Date / Time No Known Allergies Allergy Mild Verified 10/14/23 09:57 Home Medications Medication Instructions Recorded Confirmed Type ferrous sulfate 325 mg (65 mg 325 mg PO DAILY 08/13/23 10/08/23 History iron) tablet acetaminophen 500 mg tablet 1,000 mg PO TID #80 tabs 10/14/23 Rx docusate sodium 100 mg capsule 100 mg PO BID #100 caps 10/14/23 Rx (Colace) ibuprofen 800 mg tablet 800 mg PO TID #40 tabs 10/14/23 Rx oxycodone 5 mg tablet 5 mg PO Q4H PRN pain #15 tabs 10/14/23 Rx Patient hx anesthesia problems: none Family hx anesthesia problems: none Results Review: All pre-operative results and documents have been reviewed as part of the pre-operative evaluation. [facility] Family History Family History Father Diabetes mellitus Social History Social History (System 10/08/23 @ 13:21 by Patricia Dias) Smoking status: Never smoker Additional smoking assessment comments: FOB vapes but not around the child Alcohol intake: never Substance use: never Substance use type: does not use Do You Feel Safe in your Home?: Yes Lack of Transportation: No Lack of Food: Never True Current Housing: I Have Housing Concerned About Future Housing: No Difficulty Paying Gas/Electric Bills: No Difficulty Paying for Meds: No Currently Unemployed: No Education: High School Diploma/GED Difficulty w/ Childcare or Family Care: No Living arrangements: with family Additional living arrangements comments: Occupation/Education: occupation Additional occupation/education comments: self employed Gender identity (if verbalized by the patient): Female Sexual Orientation (if Verbalized by the Patient): Straight or Heterosexual Spiritual care concerns: No Anes - Eval Final PreProcedure Day of Procedure 10/14/23 11:28 Patient weight: normal Heart: regular rate and rhythm Lungs: clear to auscultation Airway: Mallampati scale class II Neurological: alert and oriented Last oral intake: >/= 8 hours ASA classification: II Emergent: no Anesthetic plan: proceed Anesthesia type and monitoring: general ETT and standard monitoring Results Review: All pre-operative results and documents have been reviewed as part of the pre-operative evaluation. Informed Consent: The patient's anesthetic plan and its attendant risks and benefits were discussed with the patient/family/POA. Questions were solicited and answers provided to the satisfaction of the patient/family/POA.
[2023-10-14] MEDS: BUPIVACAINE/EPINEPHRINE 0.5% 50 ML VIAL 30 ML INFILTRATE (12:22)
--- NOTE | 2023-10-14 12:27 | W.PM.PROC2 ---
Procedure Note - Detailed Date of Procedure 10/14/23 Pre-op Diagnosis Desires Sterilization Post-op Diagnosis Same Procedure Performed Laparoscopic bilateral salpingectomy Surgeon Arianna Joshi MD Anesthesia General and Local (25cc of 0.5% Marcaine with epi) Findings Normal cervix and uterus. Normal bilateral fallopian tubes and ovaries. Good hemostasis at end of case. Description of Procedure Dinorah was taken to the operating room where she was placed under general endotracheal anesthesia without complications. She was then prepped and draped in the usual sterile fashion in the dorsal lithotomy position with her legs in low Alexander stirrups and her arms tucked at her side with a strap over her chest. A time-out was performed and no preoperative antibiotics were indicated. My attention was turned down below where her bladder was drained via straight catheterization. A bivalve speculum was then placed within the vagina where the cervix was easily identified. The anterior lip of the cervix was grasped with a single-tooth tenaculum and an acorn uterine manipulator was placed. My gloves were changed and my attention was turned to her abdomen. An umbilical incision was made, and a 5 mm trocar was placed under direct visualization without complications. Once intra-abdominal placement was confirmed the abdomen was insufflated with carbon dioxide gas. She was then placed in Trendelenburg and two additional 5 mm ports were placed in the left and right lower quadrants under direct visualization without complications. The above findings were noted. The left fallopian tube was then elevated and the mesosalpinx was serially clamped, coagulated, transected using the LigaSure device until the proximal end of the fallopian tube was reached. The proximal end of the fallopian tube was cross clamped, coagulated and transected. The tube was then removed from the abdomen. The same procedure was then performed on the right side without any complications. Good hemostasis was noted. All instruments were removed from the abdomen. The insufflation was released and the trocars were removed. The 3 laparoscopic incision sites were reapproximated using 4-0 Monocryl and covered with Dermabond. The incisions were then infiltrated using 0.5% Marcaine. The uterine manipulator was removed. Sponge, lap, instrument, and needle counts were correct at the end of the procedure. Patient was awoken from general anesthesia and taken to recovery with plans of same-day discharge home. Estimated Blood Loss 10 IV Fluids 600 Urine Output 150 Pathology Yes (left and right fallopian tubes) Complications No immediate complications Condition Stable Disposition Same day [facility] Billing Surgery - Charge Forward: Surgery Billing
[2023-10-14] MEDS: oxyCODONE HCL (*CRX) 5 MG TAB IR PO (14:42)
== END 2023-10-14 14:52 | disposition home or self-care (01) ==
PROVIDERS: PCP Physician Assistant; Visit Provider Obstetrics & Gynecology
PROC: (CPT 49320; principal; 2023-10-14 11:15)
DX: Z30.2 Encounter for sterilization (principal); N83.8 Other noninflammatory disorders of ovary, fallopian tube and broad ligament; Z79.1 Long term (current) use of non-steroidal anti-inflammatories (NSAID)
CPT/HCPCS: 58661; 88302; A9270; J1100; J1885; J2250; J2405; J2704; J3010; J7030; J7120

== ENCOUNTER 2025-04-11 15:36 | Emergency (ER) | payer BC, SELFPAY ==
--- OUTSIDE RECORDS SUMMARY | 2025-04-11 15:38 | XMS_ITS | Clinical Summary ---
Author Organization [facility] Address [address] [place] [address] Care Team Providers Care Operating Room Surgical Technician Name Role Phone Lacey Vasquez Primary Care Provider [phone] Allergies No known active allergies Medications cyclobenzaprine (FLEXERIL) 10 mg tablet Take 1 tablet (10 mg total) by mouth 2 (two) times a day as needed for muscle spasms 20 tablet 3 Active HYDROcodone-acetami nophen (NORCO) 5-325 mg per tabletIndications:P ain Take 1 tablet by mouth every 6 (six) hours as needed for pain 6 tablet 3 Active ondansetron ODT (ZOFRAN-ODT) 4 mg disintegrating tablet Take 1 tablet (4 mg total) by mouth every 8 (eight) hours as needed for nausea or vomiting 20 tablet 3 Active Social History Tobacco Use Types Packs/Day Years Used Date Smoking Tobacco: Unknown Tobacco Cessation:Counseling Given: Not Answered Personal Safety Answer Date Recorded Getting School Help Needed Not on file 01/08 Comments Unknown Sex and Gender Information Value Date Recorded Sex Assigned at Not on file 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 Gender Identity Not on file Sexual Orientation Not on file Obstetrics History Para Term AB IAB SAB Ectopic Multiple Livin g Live Births 1 Date Outcome GA Total Labor Labor/2nd/3rd Weight Sex Type Anes PTL Rylee A1 A5 Name Clin Last Filed Vital Signs Vital Sign Reading Time Taken Comments Blood Pressure 104/80 12/14/2022 11:00 PM CDT Pulse 65 12/14/2022 11:00 PM CDT Temperature 36.8 C (98.3 F) 12/14/2022 4:48 PM CDT Respiratory Rate 14 12/14/2022 11:00 PM CDT Oxygen Saturation 97% 12/14/2022 11:00 PM CDT Inhaled Oxygen Concentration - - Weight 54.2 kg (119 lb 7.8 oz) 12/14/2022 4:48 P M CDT Height 157.5 cm (5' 2) 12/14/2022 4:48 PM CDT Body Mass Index 21.85 12/14/2022 4:48 PM CDT Plan of Treatment Health Maintenance Due Date Last Done Comments Cervical Cancer Screening 1995 Depression Screening 1995 Hepatitis C Screening 1995 Regular Well Visit/Exam 18-64 2013 DTaP/Tdap/Td Vaccine (7 - Td or Tdap) 12/25/2017 12/26/2007, 10/25/1999, 11/12/1996, Additional history exists Influenza Vaccine (#1) 2025 Hepatitis B Screening Completed 05/14/1996 , 1995, 1995 HPV Vaccines Completed 12/22/2008, 01/28, 12/26/2007 Varicella Vaccines Completed 07/12/2010, 04/12/2010 Pneumococcal vaccine <65 Aged Out No longer eligible based on patient's age to complete this topic Insurance [employer] OOS [facility] Address: [address] [place] [address] Care Teams Operating Room Surgical Technician Relationship Specialty Start Date End Date Lacey Vasquez PA [address] [place] [address] PCP - General Physician Security Monitor 11/07/21
[2025-04-11 15:39] VITALS: BP 117/77; PULSE 81; RESP 18; TEMP 37.4; O2SAT 100
[2025-04-11 16:17] LABS: BEDSIDEPREGUCG Negative (Negative)
[2025-04-11 16:27] LABS: Influenza A QL RT-PCR Negative (Negative); Influenza B QL RT-PCR Negative (Negative); RSV RNA, RT-PCR Negative (Negative); SARS-CoV-2 RNA PCR Positive (Negative)
[2025-04-11 16:33] LABS: Add Urine Microscopic? YES; Appearance Urine Turbid (Clear); Glucose Urine UA Negative (Negative); Leukocyte Esterase Ur Negative LEU/UL (Negative); Need Manual Microscopic Reviewed; Nitrate Urine Negative (Negative); Specific Grav Ur 1.033 (1.001-1.035)
[2025-04-11 16:44] LABS: Strep Group A RT-PCR NOT DETECTED (Negative)
--- NOTE | 2025-04-11 16:47 | ED_ITS ---
HPI - Nausea/Vomiting/Diarrhea General Chief complaint: Nausea/Vomiting/Diarrhea Stated complaint: vomiting Time Seen by Provider: 04/11/25 15:51 History of Present Illness HPI Narrative: Patient is a 29-year-old female who presents ER with fatigue. She has body aches as well as vomiting. She has had a runny nose but no sore throat or cough. Denies fevers. Reports multiple sick contacts who have strep throat. No chest pain or chest pressure. No abdominal pain, just occasional nausea. Related Data Home Medications ?Medication ?Instructions ?Recorded ?Confirmed ?Last Taken ?Type ferrous sulfate 325 mg (65 mg 325 mg PO DAILY 08/13/23 10/29/23 09/08/23 08:00 History iron) tablet Allergies Allergy/AdvReac Type Severity Reaction Status Date / Time No Known Allergies Allergy Mild Verified 04/11/25 15:49 Review of Systems Constitutional: Constitutional: Reports no additional constitutional complaints ENT: Reports system reviewed and no additional complaints, except as documented Cardiovascular: Cardiovascular: Reports no additional cardiovascular complaints Respiratory: Respiratory: Reports no additional respiratory complaints [facility] Surgical History Surgical History (Updated 10/29/23 @ 15:32 by Arianna Joshi MD) S/P laparoscopic surgery 10/14/2023 Laparoscopic bilateral salpingectomy Family History Family History Father Diabetes mellitus Social History Social History Smoking status: Never smoker Additional smoking assessment comments: FOB vapes but not around the child Alcohol intake: never Substance use: never Substance use type: does not use Do You Feel Safe in your Home?: Yes Lack of Transportation: No Lack of Food: Never True Current Housing: I Have Housing Concerned About Future Housing: No Difficulty Paying Gas/Electric Bills: No Difficulty Paying for Meds: No Currently Unemployed: No Education: High School Diploma/GED Difficulty w/ Childcare or Family Care: No Living arrangements: with family Additional living arrangements comments: Occupation/Education: occupation Additional occupation/education comments: self employed Gender identity (if verbalized by the patient): Female Sexual Orientation (if Verbalized by the Patient): Straight or Heterosexual Spiritual care concerns: No Exam Narrative: GENERAL: Well-appearing, well-nourished, and in no acute distress. HEAD: Normocephalic, atraumatic. ENT: Mucous membranes moist. Normal appearing posterior oropharynx. CHEST: Clear to auscultation. No respiratory distress. HEART: Regular rate and rhythm. Normal peripheral pulses. ABDOMEN: Soft, nontender, nondistended. EXTREMITIES: Normal range of motion. No edema. SKIN: Warm, dry, no rash. NEURO: Alert and oriented x3. PSYCH: Normal mood and affect. Course Course Emergency Course: Informed of results. Toradol/Zofran/IV fluid provided. Discharge home. Vital Signs Vital signs: Vital Signs Temperature 99.4 F 04/11/25 15:39 Pulse Rate 81 04/11/25 15:39 Respiratory Rate 18 04/11/25 15:39 Blood Pressure 117/77 04/11/25 15:39 Pulse Oximetry 100 04/11/25 15:39 Oxygen Delivery Room Air 04/11/25 15:39 Temperature 99.4 F 04/11/25 15:39 Pulse Rate 88 04/11/25 16:52 Respiratory Rate 17 04/11/25 16:52 Blood Pressure 100/65 04/11/25 16:52 Pulse Oximetry 96 04/11/25 16:52 Oxygen Delivery Room Air 04/11/25 15:39 MDM - Nausea/Vomiting/Diarrhea Lab Data Labs: Lab Results 04/11/25 04/11/25 04/11/25 Range/Units 15:45 16:13 16:15 Urine Color Dark yellow (Yellow) Urine Appearance Turbid H (Clear) Urine pH 5.0 (5.0-9.0) Ur Specific Dinosaur 1.033 (1.001-1.035) Urine Protein 2+ H (Negative) mg/dL Urine Glucose (UA) Negative (Negative) mg/dL Urine Ketones Trace H (Negative) mg/dL Ur Blood (Man) 3+ H (Negative) Urine Nitrate Negative (Negative) Urine Bilirubin Negative (Negative) Urine Urobilinogen 1.0 (<2.0) mg/dL Add Ur Microanalysis Reviewed Leukocyte Esterase Rfl Negative (Negative) CLAUDE/UL Urine RBC 51-100 H (0-2) /hpf Urine WBC 6-10 H (0-3) /hpf Ur Squamous Epith Cells Moderate (Few) /hpf Urine Bacteria None seen /hpf Urine Casts 11-20 Hyaline Casts Present (None) /lpf Urine Mucus Present /lpf POC Urine HCG, Qual Negative (Negative) Influenza A (RT-PCR) Negative (Negative) Influenza B (RT-PCR) Negative (Negative) RSV (RT-PCR) Negative (Negative) SARS-CoV-2 RNA (RT-PCR) Positive A (Negative) Group A Strep (PCR) Not detected (Negative) Discharge Plan Discharge Clinical Impression: COVID Patient Disposition: Home Condition: Stable Instructions: COVID-19 (Coronavirus Disease 2019) (ED) Additional Instructions: As discussed you have a viral illness. Unfortunately there are no specific medications we can give you to make the illness end faster. Antibiotics do not work for viral illnesses. However, you can take Acetaminophen or Ibuprofen to help with fevers and pain. Stay well hydrated and rested. Return to the emergency department if your fevers and chills continue to worse after 5 days, if you develop worsening cough with thick sputum, or are unable to stay hydrated. Contact your primary care provider in the next few days for a re-evaluation and to make sure your symptoms are improving. Patient Language: Uzbek Prescriptions: New ondansetron 4 mg tablet,disintegrating 4 mg PO Q6H PRN (Reason: nausea and vomiting) Qty: 10 0RF No Action ferrous sulfate 325 mg (65 mg iron) tablet 325 mg PO DAILY docusate sodium [Colace] 100 mg capsule 100 mg PO BID Qty: 100 0RF Follow-up/Referrals: Parent,NICANOR Alcala [Primary Care Provider, Unknown] - 1 Week
[2025-04-11] MEDS: ONDANSETRON INJ 4 MG/2 ML VIAL IV PUSH (16:49)
[2025-04-11] MEDS: KETOROLAC 30 MG/ML VIAL (*BKC) IV PUSH (16:49)
[2025-04-11] MEDS: SODIUM CHLORIDE 0.9% IV 1,000 ML 999 ML IV CONT (16:49)
[2025-04-11 16:52] VITALS: BP 100/65; PULSE 88; RESP 17; O2SAT 96
== END 2025-04-11 17:30 | disposition home or self-care (01) ==
PROVIDERS: Student in an Organized Health Care Education/Training Program; Emergency Provider Emergency Medicine; PCP Physician Assistant
DX: U07.1 COVID-19 (principal)
CPT/HCPCS: 81001; 81025; 87637; 87651; 96361; 96374; 96375; 99284; J1885; J2405; J7030

== ENCOUNTER 2025-06-04 20:22 | Emergency (ER) | payer BC, SELFPAY ==
--- OUTSIDE RECORDS SUMMARY | 2025-06-04 20:24 | XMS_ITS | Clinical Summary ---
Author Organization [facility] Address [address] [place] [id number] Care Team Providers Care Morgue Attendant Name Role Phone Unavailable Primary Care Provider Unavailabl e Social History Tobacco Use Types Packs/Day Years Used Date Smoking Tobacco: Never Assessed Comments Unknown Sex and Gender Information Value Date Recorded Sex Assigned at Not on file Legal Sex Female 4:46 PM CDT Gender Identity Not on file Sexual Orientation Not on file Plan of Treatment Health Maintenance Due Date Last Done Comments Cervical Cancer Screening Pa p Smear (Age 21 to 29) Every 3 Years 1995 Cervical Cancer Screening 1995 Annual Physical 1998 Hepatitis C 2013 DTaP, Tdap and Td Vaccines ( 1 - Tdap) 2014 Hepatitis B Vaccines (1 of 3 - 19+ 3-dose series) 2014 HPV Vaccines (1 - 3-dose SCD M series) 2022 COVID-19 Vaccine ( - 2024-2 6 season) 2025 Influenza Adult (#1) 2025 Hepatitis A Vaccines Aged Out No long er eligible based on patient's age to complete this topic Meningococcal B Vaccine Aged Out No l onger eligible based on patient's age to complete this topic Meningococcal Vaccine Aged Out No leticia walter eligible based on patient's age to complete this topic Pneumococcal Vaccine: Pediat rics (0 to 5 Years) and At-Risk Patients (6 to 49 Years) Aged Out No longer eligible b ased on patient's age to complete this topic RSV Immunizations Under 20 Months Aged Out No longer eligible based on patient's age to complete this topic
--- OUTSIDE RECORDS SUMMARY | 2025-06-04 20:24 | XMS_ITS | Clinical Summary ---
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
[2025-06-04 20:26] VITALS: BP 107/61; PULSE 67; RESP 16; TEMP 37.1; O2SAT 100
--- OUTSIDE RECORDS SUMMARY | 2025-06-04 22:34 | XMS_ITS | Clinical Summary ---
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
--- OUTSIDE RECORDS SUMMARY | 2025-06-04 22:34 | XMS_ITS | Clinical Summary ---
Author Organization [facility] Address [address] [place] [id number] Care Team Providers Care Seat Pack Inspector Name Role Phone Unavailable Primary Care Provider [...]
--- OUTSIDE RECORDS SUMMARY | 2025-06-04 22:34 | XMS_ITS | Data Portability ---
[facility] Address [address] [place] [address] Care Team Providers Care Archivist [employer] Name Role Phone FLEX AMARO Primary Care Provider Assessment No assessment recorded. Plan of Treatment Reminders Order Date Submit Date Provider Last Modified By Organization Details Last Modified Time Details Appointments None recorded. Lab urinalysis , dipstick 2021 022 [email or web address] In-Office Order, Internal Use Only DO Not Attach Compendium DO Not Attach Compendium, Do Not Delete/merge, [id number] 12:22:29 culture, urine 2021 022 [email or web address] [facility], [address], [place], [address], 20:54:39 urinalysis , complete 2021 022 [employer] [facility], [address], [address], [place], [address], 20:54:38 urinalysis , dipstick 2021 022 [email or web address] In-Office Order, Internal Use Only DO Not Attach Compendium DO Not Attach Compendium, Do Not Delete/merge, [id number] 13:34:41 culture, urine 2021 022 [employer] [facility], [address], [address], [place], [address], 22:03:40 urinalysis , dipstick 2021 [place] In-Office Order, Internal Use Only DO Not Attach Compendium DO Not Attach Compendium, Do Not Delete/merge, 14:49:55 test, urine 2021 MI In-Office Order, Internal Use Only DO Not Attach Compendium DO Not Attach Compendium, Do Not Delete/merge, 13:04:06 culture, urine 2021 [employer] [facility], [address], [place], [address], 03:08:08 CMP, serum or plasma 2021 [facility], [address], [address], [place], [address], 03:08:07 CBC w/ auto diff 2021 MID[facility], [address], [address], [place], [address], 03:08:07 Referral None recorded. Procedures None recorded. Surgeries None recorded. Imaging CT, abdomen + pelvis, w/o contrast - Order ID: [id number] Completed Approval Valid Through: 11/07/2021 - 12/06/20212021 [facility]/ Pre-Admission , [address] [place], [address], 12:34:48 compa SHIRLEY 2021 [facility]/ Pre-Admission , [address] [place], [address], 04/12/202 2 13:35:17 Medication Orders ondansetro n HCl (PF) 4 mg/2 mL injection solution 2023 024 [email or web address] Not available 16:13:41 prednisone 20 mg tablet 2023 024 [place] [facility] [id number] In [facility], [facility] [address], [place], [address], 4 15:18:19 Zithromax Z-Osvaldo 250 mg tablet 2023 [place] [facility] [address] In [facility], [address], [place], [address], 4 15:18:18 ketorolac 60 mg/2 mL intramuscu lar solution 2021 022 [email or web address] Not available 09:44:27 Patient TargetsNo targets recorded. Patient InstructionsNo instructions recorded. Reason for Referral None Reported. Results Created Date Observation Date Name Description Value Unit Range Abnormal Flag Note LastModifiedBy Organization Detail LastModifiedTime 10/13/19 22 10/12/2021 rapid SARS CoV 2 Ag, QL IA, respi rator y speci men rapid SARS CoV 2 Ag, QL IA, respiratory specimen negati ve Not Available In-Office Order Internal Use Only DO Not Attach Compendium DO Not Attach Compendium, Do Not Delete/merge, [id number] 10/12/2021 15:12:04 11/07/19 22 11/07/2021 UA/M W/RFL X CULTU RE, ROUTI NE specific gravity TNP Test not perfo rmed. Smith top urine tube is for urine cultu re and is not suita ble for urina lysis . Not Available [facility] ([facility]) [address], [place], [address], 11/07/2021 12:11:41 11/07/19 22 11/07/2021 UA/M W/RFL X CULTU RE, ROUTI NE pH TNP Test not perfo rmed Not Available [facility] ([facility]) [address] [facility] [address], [place], [address], 11/07/2021 12:11:41 11/07/19 22 11/07/2021 UA/M W/RFL X CULTU REALEXUS NE urine-color LEAD CARPENTER Not Available [facility] ([facility]) [address] [facility] [address], [place], [address], 11/07/2021 12:11:41 11/07/19 22 11/07/2021 UA/M W/RFL X CULTU RE ROUTLanie NE appearance LEAD CARPENTER Not Available [facility] ([facility]) [address] [facility] [address], [place], [address], 11/07/2021 12:11:41 11/07/19 22 11/07/2021 UA/M W/RFL X CULTU RE ROUTLanie NE WBC esterase LEAD CARPENTER Not Available [facility] ([facility]) [address], [place], [address], 11/07/2021 12:11:41 11/07/19 22 11/07/2021 UA/M W/RFL X CULTU RE ROUTI NE protein TNP Test not perfo rmed Not Available [facility] ([facility]) [address] [facility] [address], [place], [address], 11/07/2021 12:11:41 11/07/19 22 11/07/2021 UA/M W/RFL X CULTFranklin REALEXUS NE glucose TNP Test not perfo rmed Not Available [facility] ([facility]) [address], [place], [address], 11/07/2021 12:11:41 11/07/19 22 11/07/2021 UA/M W/RFL X CULTU REKATHYI NE ketones TNP Test not perfo rmed Not Available [facility] ([facility]) [address] [place], [address], 11/07/2021 12:11:41 11/07/19 22 11/07/2021 UA/M W/RFL X CULTU RE, ROUTI NE occult blood LEAD CARPENTER Not Available [facility] ([facility]) [address] [facility] [facility] [address], [place], [address], 11/07/2021 12:11:41 11/07/19 22 11/07/2021 UA/M W/RFL X CULTU RE, ROUTI NE bilirubin LEAD CARPENTER Not Available [facility] ([facility]) [address] [facility] [facility] [address], [place], [address], 11/07/2021 12:11:41 11/07/19 22 11/07/2021 UA/M W/RFL X CULTU RE, ROUTI NE urobilinogen ,semi-qn LEAD CARPENTER Not Available [facility] ([facility]) [address] [facility] [facility] [address], [place], [address], 11/07/2021 12:11:41 11/07/19 22 11/07/2021 UA/M W/RFL X CULTU RE, ROUTI NE nitrite, urine LEAD CARPENTER Not Available [facility] ([facility]) [address] [facility] [facility] [address], [place], [address], 11/07/2021 12:11:41 11/07/19 22 11/07/2021 UA/M W/RFL X CULTU RE, ROUTI NE microscopic examination LEAD CARPENTER Not Available [facility] ([facility]) [address] [facility] [facility] [address], [place], [address], 11/07/2021 12:11:41 11/07/19 22 11/07/2021 UA/M W/RFL X CULTU RE, ROUTI NE microscopic examination LEAD CARPENTER Not Available [facility] ([facility]) [address] [place], [address], 11/07/2021 12:11:41 11/07/19 22 11/07/2021 UA/M W/RFL X CULTU RE, ROUTI NE urinalysis reflex LEAD CARPENTER Not Available [facility] ([facility]) [address] [facility] [address], [place], [address], 11/07/2021 12:11:41 11/07/19 22 11/07/2021 SPECI MEN STATU S REPOR T specimen status report TNP Test not perfo rmed. Smith top urine tube is for urine cultu re and is not suita ble for urina lysis . TEST: 11525 6 UA/M w/rfl x Cultu re, Routi ne Not Available [facility] ([facility]) [address], [place], [address], 11/07/2021 12:11:41 11/07/19 22 11/08/2021 URINE CULTU RE, ROUTI NE urine culture, routine Final report Not Available [facility] ([facility]) [address], [place], [address], 11/09/2021 03:08:06 11/07/19 22 11/08/2021 URINE CULTU RE, ROUTI NE result 1 Commen t Cultu re shows less than 10,00 0 colon y formi ng units of bacte sebastian per tip liter of urine . This colon y count is not gener ally consi dered to be clini bryson signi fican t. Not Available [facility] ([facility]) [address], [place], [address], 11/09/2021 03:08:06 11/07/19 22 11/07/2021 [place] EN AUTHO RIZAT ION written authorizatio n Commen t [place] en Autho rizat ion Recei azeem. Autho rizat ion recei azeem from ORIGI NAL REQUI SITIO N 11-07 Logge d by Joe Francisco Not Available [facility] ([facility]) [address], [place], [address], 11/09/2021 03:08:06 11/07/19 22 11/06/2021 urina lysis , dipst ick pH 5.0 Not Available In-Office Order Internal Use Only DO Not Attach Compendium DO Not Attach Compendium, Do Not Delete/merge, [facility] 11/06/2021 11:01:07 11/07/19 22 11/06/2021 urina lysis , dipst ick Blood Large Not Available In-Office Order Internal Use Only DO Not Attach Compendium DO Not Attach Compendium, Do Not Delete/merge, [facility] 11/06/2021 11:01:07 11/07/19 22 11/06/2021 urina lysis , dipst ick Glucose Negati ve Not Available In-Office Order Internal Use Only DO Not Attach Compendium DO Not Attach Compendium, Do Not Delete/merge, [facility] 11/06/2021 11:01:07 11/07/19 22 11/06/2021 urina lysis , dipst ick Appearance Turbid Not Available In-Offi ce Order Internal Use Only DO Not Attach Compendium DO Not Attach Compendium, Do Not Delete/merge, [facility] 11/06/2021 11:01:07 11/07/19 22 11/06/2021 urina lysis , dipst ick Color [place] Not Available In-Office Order Internal Use Only DO Not Attach Compendium DO Not Attach Compendium, Do Not Delete/merge, [facility] 11/06/2021 11:01:07 11/08/19 22 11/07/2021 urina lysis , dipst ick Leukocytes Negati ve Not Available In-Office Order Internal Use Only DO Not Attach Compendium DO Not Attach Compendium, Do Not Delete/merge, [facility] 11/07/2021 10:48:30 11/08/19 22 11/07/2021 urina lysis , dipst ick Nitrite negati ve Not Available In-Office Order Internal Use Only DO Not Attach Compendium DO Not Attach Compendium, Do Not Delete/merge, [facility] 11/07/2021 10:48:30 11/08/19 22 11/07/2021 urina lysis , dipst ick Urobilinogen .2 Not Available In-Of fice Order Internal Use Only DO Not Attach Compendium DO Not Attach Compendium, Do Not Delete/merge, [facility] 11/07/2021 10:48:30 11/08/19 22 11/07/2021 urina lysis , dipst ick Protein Negati ve Not Available In-Office Order Internal Use Only DO Not Attach Compendium DO Not Attach Compendium, Do Not Delete/merge, 11/07/2021 10:48:30 11/08/19 22 11/07/2021 urina lysis , dipst ick pH 5.0 Not Available In-Office Order Internal Use Only DO Not Attach Compendium DO Not Attach Compendium, Do Not Delete/merge, 11/07/2021 10:48:30 11/08/19 22 11/07/2021 urina lysis , dipst ick Blood Negati ve Not Available In-Office Order Internal Use Only DO Not Attach Compendium DO Not Attach Compendium, Do Not Delete/merge, 11/07/2021 10:48:30 11/08/19 22 11/07/2021 urina lysis , dipst ick Specific [place] 1.020 Not Available In-Off ice Order Internal Use Only DO Not Attach Compendium DO Not Attach Compendium, Do Not Delete/merge, 11/07/2021 10:48:30 11/08/19 22 11/07/2021 urina lysis , dipst ick Ketone Negati ve Not Available In-Office Order Internal Use Only DO Not Attach Compendium DO Not Attach Compendium, Do Not Delete/merge, 11/07/2021 10:48:30 11/08/19 22 11/07/2021 urina lysis , dipst ick Bilirubin Negati ve Not Available In-Office Order Internal Use Only DO Not Attach Compendium DO Not Attach Compendium, Do Not Delete/merge, 11/07/2021 10:48:30 11/08/19 22 11/07/2021 urina lysis , dipst ick Glucose Negati ve Not Available In-Office Order Internal Use Only DO Not Attach Compendium DO Not Attach Compendium, Do Not Delete/merge, 11/07/2021 10:48:30 11/08/19 22 11/07/2021 urina lysis , dipst ick Appearance Clear Not Available In-Offi ce Order Internal Use Only DO Not Attach Compendium DO Not Attach Compendium, Do Not Delete/merge, [id number] 11/07/2021 10:48:30 11/08/1911/07/2021 urina lysis , dipst ick Color [place] Not Available In-Office Order Internal Use Only DO Not Attach Compendium DO Not Attach Compendium, Do Not Delete/merge, [id number] 11/07/2021 10:48:30 11/08/19 22 11/07/2021 pregn shannon test, urine HCG negati ve Not Available In-Office Order Internal Use Only DO Not Attach Compendium DO Not Attach Compendium, Do Not Delete/merge, [id number] 11/07/2021 10:48:33 11/09/1911/09/2021 CBC WITH DIFFE RENTI AL/PL ATELE T WBC 4.9 x10e3 /uL 3.4-10 .8 Not Available [facility] ([facility]) [address] [place], [address], 11/10/2021 03:08:06 11/09/19 22 11/09/2021 CBC WITH DIFFE RENTI AL/PL ATELE T RBC 4.27 x10e6 /uL 3.77-5 .28 Not Available [facility] ([facility]) [address], [place], [address], 11/10/2021 03:08:06 11/09/19 22 11/09/2021 CBC WITH DIFFE RENTI AL/PL ATELE T hemoglobin 12.6 g/dL 11.1-1 5.9 Not Available [facility] ([facility]) [address] [facility] [address], [place], [address], 11/10/2021 03:08:06 11/09/19 22 11/09/2021 CBC WITH DIFFE RENTI AL/PL ATELE T hematocrit 37.1 % 34.0-4 6.6 Not Available [facility] ([facility]) [address] [place], [address], 11/10/2021 03:08:06 11/09/19 22 11/09/2021 CBC WITH DIFFE RENTI AL/PL ATELE T MCV 87 fL 79-97 Not Available [facility] ([facility]) [address] [facility], [place], [address], 11/10/2021 03:08:06 11/09/19 22 11/09/2021 CBC WITH DIFFE RENTI AL/PL ATELE T MCH 29.5 pg 26.6-3 3.0 Not Available [facility] ([facility]) [address] [facility] [facility] [address], [place], [address], 11/10/2021 03:08:06 11/09/19 22 11/09/2021 CBC WITH DIFFE RENTI AL/PL ATELE T MCHC 34.0 g/dL 31.5-3 5.7 Not Available [facility] ([facility]) [address] [facility] [address], [place], [address], 11/10/2021 03:08:06 11/09/19 22 11/09/2021 CBC WITH DIFFE RENTI AL/PL ATELE T RDW 12.6 % 11.7-1 5.4 Not Available [facility] ([facility]) [address], [place], [address], 11/10/2021 03:08:06 11/09/19 22 11/09/2021 CBC WITH DIFFE RENTI AL/PL ATELE T platelets 205 x10e3 /uL 150-45 0 Not Available [facility] ([facility]) [address], [place], [address], 11/10/2021 03:08:06 11/09/19 22 11/09/2021 CBC WITH DIFFE RENTI AL/PL ATELE T neutrophils 79 % not estab. Not Available [facility] ([facility]) [address], [place], [address], 11/10/2021 03:08:06 11/09/19 22 11/09/2021 CBC WITH DIFFE RENTI AL/PL ATELE T lymphs 11 % not estab. Not Available [facility] ([facility]) [address], [place], [address], 11/10/2021 03:08:06 11/09/19 22 11/09/2021 CBC WITH DIFFE RENTI AL/PL ATELE T monocytes 7 % not estab. Not Available [facility] ([facility]) [address], [place], [address], 11/10/2021 03:08:06 11/09/19 22 11/09/2021 CBC WITH DIFFE RENTI AL/PL ATELE T eos 1 % not estab. Not Available [facility] ([facility]) [address], [place], [address], 11/10/2021 03:08:06 11/09/19 22 11/09/2021 CBC WITH DIFFE RENTI AL/PL ATELE T basos 1 % not estab. Not Available [facility] ([facility]) [address] [facility] [facility] [address], [place], [address], 11/10/2021 03:08:06 11/09/19 22 11/09/2021 CBC WITH DIFFE RENTI AL/PL ATELE T immature cells LEAD CARPENTER Not Available [facility] ([facility]) [address], [place], [address], 11/10/2021 03:08:06 11/09/19 22 11/09/2021 CBC WITH DIFFE RENTI AL/PL ATELE T neutrophils (absolute) 3.9 x10e3 /uL 1.4-7. 0 Not Available [facility] ([facility]) [address] [place], [address], 11/10/2021 03:08:06 11/09/19 22 11/09/2021 CBC WITH DIFFE RENTI AL/PL ATELE T lymphs (absolute) 0.6 x10e3 /uL 0.7-3. 1 below low normal Not Available [facility] ([facility]) [address] [facility] [facility] [address], [place], [address], 11/10/2021 03:08:06 11/09/19 22 11/09/2021 CBC WITH DIFFE RENTI AL/PL ATELE T monocytes(ab solute) 0.3 x10e3 /uL 0.1-0. 9 Not Available [facility] ([facility]) [address] [facility] [facility] [address], [place], [address], 11/10/2021 03:08:06 11/09/19 22 11/09/2021 CBC WITH DIFFE RENTI AL/PL ATELE T eos (absolute) 0.0 x10e3 /uL 0.0-0. 4 Not Available [facility] ([facility]) [address] [facility] [address], [place], [address], 11/10/2021 03:08:06 11/09/19 22 11/09/2021 CBC WITH DIFFE RENTI AL/PL ATELE T baso (absolute) 0.0 x10e3 /uL 0.0-0. 2 Not Available [facility] ([facility]) [address] [facility] [facility] [address], [place], [address], 11/10/2021 03:08:06 11/09/19 22 11/09/2021 CBC WITH DIFFE RENTI AL/PL ATELE T immature granulocytes 1 % not estab. Not Available [facility] ([facility]) [address] [place], [address], 11/10/2021 03:08:06 11/09/19 22 11/09/2021 CBC WITH DIFFE RENTI AL/PL ATELE T immature grans (abs) 0.0 x10e3 /uL 0.0-0. 1 Not Available [facility] ([facility]) [address] [facility] [facility] [address], [place], [address], 11/10/2021 03:08:06 11/09/19 22 11/09/2021 CBC WITH DIFFE RENTI AL/PL ATELE T NRBC LEAD CARPENTER Not Available [facility] ([facility]) [address] [facility] [address], [place], [address], 11/10/2021 03:08:06 11/09/19 22 11/09/2021 CBC WITH DIFFE RENTI AL/PL ATELE T hematology comments: LEAD CARPENTER Not Available [facility] ([facility]) [address] [facility] [address], [place], [address], 11/10/2021 03:08:06 11/09/19 22 11/09/2021 COMP. METAB OLIC PANEL (14) glucose 97 mg/dL 65-99 Not Available [facility] ([facility]) [address] [place], [address], 11/10/2021 03:08:07 11/09/19 22 11/09/2021 COMP. METAB OLIC PANEL (14) BUN 19 mg/dL 6-20 Not Available [facility] ([facility]) [address] [facility] [place], [address], 11/10/2021 03:08:07 11/09/19 22 11/09/2021 COMP. METAB OLIC PANEL (14) creatinine 0.99 mg/dL 0.57-1 .00 Not Available [facility] ([facility]) [address] [facility] [place], [address], 11/10/2021 03:08:07 11/09/19 22 11/09/2021 COMP. METAB OLIC PANEL (14) eGFR 81 mL/mi n/1.7 3 >59 Not Available [facility] ([facility]) [address] [facility] [place], [address], 11/10/2021 03:08:07 11/09/19 22 11/09/2021 COMP. METAB OLIC PANEL (14) BUN/creatini ne ratio 19 9-23 Not Available [facility] ([facility]) [address] [place], [address], 11/10/2021 03:08:07 11/09/19 22 11/09/2021 COMP. METAB OLIC PANEL (14) sodium 136 mmol/ L 134-14 4 Not Available [facility] ([facility]) [address] [facility] [place], [address], 11/10/2021 03:08:07 11/09/19 22 11/09/2021 COMP. METAB OLIC PANEL (14) potassium 3.7 mmol/ L 3.5-5. 2 Not Available [facility] ([facility]) [address] [facility] [place], [address], 11/10/2021 03:08:07 11/09/19 22 11/09/2021 COMP. METAB OLIC PANEL (14) chloride 95 mmol/ L 96-106 below low normal Not Available [facility] ([facility]) [address] [facility] [address], [place], [address], 11/10/2021 03:08:07 11/09/19 22 11/09/2021 COMP. METAB OLIC PANEL (14) carbon dioxide, total 23 mmol/ L 20-29 Not Available [facility] ([facility]) [address] [facility] [place], [address], 11/10/2021 03:08:07 11/09/19 22 11/09/2021 COMP. METAB OLIC PANEL (14) calcium 9.0 mg/dL 8.7-10 .2 Not Available [facility] ([facility]) [address] [facility] [place], [address], 11/10/2021 03:08:07 11/09/19 22 11/09/2021 COMP. METAB OLIC PANEL (14) protein, total 7.0 g/dL 6.0-8. 5 Not Available [facility] ([facility]) [address] [facility] [place], [address], 11/10/2021 03:08:07 11/09/19 22 11/09/2021 COMP. METAB OLIC PANEL (14) albumin 3.9 g/dL 3.9-5. 0 Not Available [facility] ([facility]) [address] [facility], [place], [address], 11/10/2021 03:08:07 11/09/19 22 11/09/2021 COMP. METAB OLIC PANEL (14) globulin, total 3.1 g/dL 1.5-4. 5 Not Available [facility] ([facility]) [address] [facility], [place], [address], 11/10/2021 03:08:07 11/09/19 22 11/09/2021 COMP. METAB OLIC PANEL (14) A/G ratio 1.3 1.2-2. 2 Not Available [facility] ([facility]) [address] [facility] [address], [place], [address], 11/10/2021 03:08:07 11/09/19 22 11/09/2021 COMP. METAB OLIC PANEL (14) bilirubin, total 0.4 mg/dL 0.0-1. 2 Not Available [facility] ([facility]) [address] [facility], [place], [address], 11/10/2021 03:08:07 11/09/19 22 11/09/2021 COMP. METAB OLIC PANEL (14) alkaline phosphatase 88 IU/L 44-121 Not Available [facility] ([facility]) [address] [facility], [place], [address], 11/10/2021 03:08:07 11/09/19 22 11/09/2021 COMP. METAB OLIC PANEL (14) AST (SGOT) 14 IU/L 0-40 Not Available [facility] ([facility]) [address] [facility] [address], [place], [address], 11/10/2021 03:08:07 11/09/19 22 11/09/2021 COMP. METAB OLIC PANEL (14) ALT (SGPT) 8 IU/L 0-32 Not Available [facility] ([facility]) [address] [facility] [address], [place], [address], 11/10/2021 03:08:07 11/09/19 22 11/09/2021 URINA LYSIS , ROUTI NE specific gravity >=1.03 0 1.005- 1.030 abnormal Not Available [facility] ([facility]) [address] [facility] [address], [place], [address], 11/10/2021 03:08:08 11/09/19 22 11/09/2021 URINA LYSIS , ROUTI NE pH 6.0 5.0-7. 5 Not Available [facility] ([facility]) [address] [facility] [address], [place], [address], 11/10/2021 03:08:08 11/09/19 22 11/09/2021 URINA LYSIS , ROUTI NE urine-color Yellow yellow Not Available [facility] ([facility]) [address] [facility] [address], [place], [address], 11/10/2021 03:08:08 11/09/19 22 11/09/2021 URINA LYSIS , ROUTI NE appearance Cloudy clear abnormal Not Available [facility] ([facility]) [address] [facility] [address], [place], [address], 11/10/2021 03:08:08 11/09/19 22 11/09/2021 URINA LYSIS , ROUTI NE WBC esterase 1+ negati ve abnormal Not Available [facility] ([facility]) [address] [facility], [place], [address], 11/10/2021 03:08:08 11/09/19 22 11/09/2021 URINA LYSIS , ROUTI NE protein 3+ negati ve/tra ce abnormal Not Available [facility] ([facility]) [address] [place], [address], 11/10/2021 03:08:08 11/09/19 22 11/09/2021 URINA LYSIS , ROUTI NE glucose Trace negati ve abnormal Not Available [facility] ([facility]) [address] [place], [address], 11/10/2021 03:08:08 11/09/19 22 11/09/2021 URINA LYSIS , ROUTI NE ketones 1+ negati ve abnormal Not Available [facility] ([facility]) [address] [place], [address], 11/10/2021 03:08:08 11/09/19 22 11/09/2021 URINA LYSIS , ROUTI NE occult blood 2+ negati ve abnormal Not Available [facility] ([facility]) [address] [place], [address], 11/10/2021 03:08:08 11/09/19 22 11/09/2021 URINA LYSIS , ROUTI NE bilirubin Negati ve negati ve Not Available [facility] ([facility]) [address] [place], [address], 11/10/2021 03:08:08 11/09/19 22 11/09/2021 URINA LYSIS , ROUTI NE urobilinogen ,semi-qn 1.0 mg/dL 0.2-1. 0 Not Available [facility] ([facility]) [address] [place], [address], 11/10/2021 03:08:08 11/09/19 22 11/09/2021 URINA LYSIS , ROUTI NE nitrite, urine Positi ve negati ve abnormal Not Available [facility] ([facility]) [address] [place], [address], 11/10/2021 03:08:08 11/09/19 22 11/09/2021 URINA LYSIS , ROUTI NE microscopic examination See below: Micro scopi c was indic ated and was perfo rmed. Not Available [facility] ([facility]) [address] [facility] [address], [place], [address], 11/10/2021 03:08:08 11/09/19 22 11/09/2021 URINA LYSIS , ROUTI NE WBC 11-30 /hpf 0 - 5 abnormal Not Available [facility] ([facility]) [address] [facility] [facility] [address], [place], [address], 11/10/2021 03:08:08 11/09/19 22 11/09/2021 URINA LYSIS , ROUTI NE RBC 11-30 /hpf 0 - 2 abnormal Not Available [facility] ([facility]) [address] [facility] [facility] [address], [place], [address], 11/10/2021 03:08:08 11/09/19 22 11/09/2021 URINA LYSIS , ROUTI NE epithelial cells (non renal) >10 /hpf 0 - 10 abnormal Not Available [facility] ([facility]) [address] [facility] [facility] [address], [place], [address], 11/10/2021 03:08:08 11/09/19 22 11/09/2021 URINA LYSIS , ROUTI NE epithelial cells (renal) [employer] Not Available [facility] ([facility]) [address] [facility] [facility] [address], [place], [address], 11/10/2021 03:08:08 11/09/19 22 11/09/2021 URINA LYSIS , ROUTI NE casts None seen /lpf none seen Not Available [facility] ([facility]) [address] [facility] [facility] [address], [place], [address], 11/10/2021 03:08:08 11/09/19 22 11/09/2021 URINA LYSIS , ROUTI NE cast type LE[employer]PENTER Not Available [facility] ([facility]) [address] [facility] [facility] [address], [place], [address], 11/10/2021 03:08:08 11/09/19 22 11/09/2021 URINA LYSIS , ROUTI NE crystals LE[employer] Not Available [facility] ([facility]) [address] [facility] [facility] [address], [place], [address], 11/10/2021 03:08:08 11/09/19 22 11/09/2021 URINA LYSIS , ROUTI NE crystal type [employer] Not Available [facility] ([facility]) [address], [place], [address], 11/10/2021 03:08:08 11/09/19 22 11/09/2021 URINA LYSIS , ROUTI NE mucus threads [employer] Not Available [facility] ([facility]) [address] [place], [address], 11/10/2021 03:08:08 11/09/19 22 11/09/2021 URINA LYSIS , ROUTI NE bacteria Many none seen/f ew abnormal Not Available [facility] ([facility]) [address] [facility] [address], [place], [address], 11/10/2021 03:08:08 11/09/19 22 11/09/2021 URINA LYSIS , ROUTI NE yeast [employer] Not Available [facility] ([facility]) [address] [place], [address], 11/10/2021 03:08:08 11/09/1911/09/2021 URINA LYSIS , ROUTI NE trichomonas [employer] Not Available [facility] ([facility]) [address] [place], [address], 11/10/2021 03:08:08 11/09/19 22 11/09/2021 URINA LYSIS , ROUTI NE comment [employer] Not Available [facility] ([facility]) [address] [place], [address], 11/10/2021 03:08:08 11/09/19 22 11/09/2021 PREGN SHANNON TEST, URINE test, urine Negati ve negati ve Not Available [facility] ([facility]) [address] [facility] [address], [place], [address], 11/10/2021 03:08:08 11/09/19 22 11/10/2021 URINE CULTU RE, ROUTI NE urine culture, routine Final report Not Available [facility] ([facility]) [address] [facility] [address], [place], [address], 11/10/2021 03:08:08 11/09/19 22 11/10/2021 URINE CULTU RE, ROUTI NE result 1 Commen t Mixed uroge nital cecilia Less than 10,00 0 colon ies/m L Not Available [facility] ([facility]) [address] [facility] [address], [place], [address], 11/10/2021 03:08:08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 urgency, andno urge incontinence. For quality, patient reportssymptoms worse during the day. For severity, patient reportsmild. For duration, patient reportsevery 30 minutes. For onset/timing, patient reportsactual date: (11/03/2021). For context, patient reportssuccess with short term antibiotics,success with truck terminal manager antibiotics, andsuccess with pyridium(pt states that she is on antibiotics at time of visit, pt also states that she thinks that she has uti or kidney stones.). For alleviating factors, patient reportsantibiotics(pain medication). N/V for 2 weeks. Lower abdominal pain and urinary symptoms (burning, urgency, low amount) started Saturday. Right sided back pain started Saturday. Pain came on slowly. No chance she could be -just got off her period. NICANOR Valle Attn: Accounting,[address] [place], [address], [facility] 11/07/2021 13:23:20 4 text/html Ear Pain/InfectionReported by PatientHPIFor location, patient reportsearache leftandpain in the jaw. For quality, patient reportsworsening pain. For onset/timing, patient reportsrecurrent episode. For duration, patient reportsongoing pain. For severity, patient reportsno fever,does not limit daily activities,not interfering with work,not interfering with social activities,no difficulty understanding speech,does not require tv, radio at high volume, andable to sleep during episode.getting worse, pain, and pressure, has not drained any liquid, totally blocked and painful. keeping her up, finished amoxicillin yesterdayROS as noted in the HPI NICANOR Callahan Attn: Accounting,[address] [facility], [place], [address], [facility] 04/13/2024 15:39:50 11/11/202 4 text/html VomitingReported by PatientHPI:For quality, patient reportsworseningbut reportsnot changing(vomiting something green). For aggravating factors, patient reportseatingandworse at night. For associated symptoms, patient reportsfever,chills,sore throat,headache,nausea,wea kness, andfatiguebut reportsno abdominal pain,no excess gas,no frequent coughing,no rash,no weight loss,no decreased appetite,no diarrhea,no dry heaves,no heartburn,no hematuria,no hematochezia,no mucus in stool, andno melena. For severity, patient reportsmoderate. For duration, patient reports2 days. For onset/timing, patient reports4-10 times a day. For context, patient reportsno one else with similar symptoms,no possible food sources,no recent travel,no well water,non-smoker,no drug/alcohol abuse, andno drug alcohol withdrawal(pt states that her kids has been sick and has gave it to her. pt states that she has been feel fatigue and has had a really bad migraine.). For alleviating factors, patient reportsnothing gives relief.ROS as noted in the HPI NICANOR Callahan Attn: Accounting[address] [place], [address], [place] [facility] 06/08/2024 15:54:55 OBGyn Episode No OBEpisode recorded.
[2025-06-05 01:02] VITALS: BP 110/66; PULSE 63; RESP 18; O2SAT 100
--- NOTE | 2025-06-05 01:28 | ED_ITS ---
HPI - General Adult General Chief complaint: Eye Problems Stated complaint: eye injury Time Seen by Provider: 06/04/25 22:26 History of Present Illness HPI narrative: 29-year-old female presenting with complaints of right eye pain. Patient states 30 minutes prior to arrival she was struck in the right eye with a toy while playing with her children. Patient states her eye bled and she felt as if she was going to pass out. Patient endorses a mild headache. Denies vision changes, sensitivity to light or sound, nausea or vomiting. Related Data Home Medications ?Medication ?Instructions ?Recorded ?Confirmed ?Last Taken ?Type ferrous sulfate 325 mg (65 mg 325 mg PO DAILY 08/13/23 10/29/23 09/08/23 08:00 History iron) tablet Allergies Allergy/AdvReac Type Severity Reaction Status Date / Time No Known Allergies Allergy Mild Verified 06/04/25 20:36 Review of Systems Review of Systems: All systems reviewed & are unremarkable except as noted in HPI and below PMFSH Surgical History Surgical History (Updated 10/29/23 @ 15:32 by Arianna Joshi MD) S/P laparoscopic surgery 10/14/2023 Laparoscopic bilateral salpingectomy Family History Family History Father Diabetes mellitus Social History Social History Additional smoking assessment comments: FOB vapes but not around the child Alcohol intake: never Substance use: never Substance use type: does not use Do You Feel Safe in your Home?: Yes Lack of Transportation: No Lack of Food: Never True Current Housing: I Have Housing Concerned About Future Housing: No Difficulty Paying Gas/Electric Bills: No Difficulty Paying for Meds: No Currently Unemployed: No Education: High School Diploma/GED Difficulty w/ Childcare or Family Care: No Living arrangements: with family Additional living arrangements comments: Occupation/Education: occupation Additional occupation/education comments: self employed Gender identity (if verbalized by the patient): Female Sexual Orientation (if Verbalized by the Patient): Straight or Heterosexual Spiritual care concerns: No Exam Narrative: GENERAL: Well-appearing, well-nourished, and in no acute distress. HEAD: Normocephalic, atraumatic. EYES: PERRLA and EOMI. Lateral right eye a conjunctival injection. ENT: Nares clear, no rhinorrhea or epistaxis. Mucous membranes moist. Oropharynx without tonsillar hypertrophy exudate or other lesions. Bilateral TMs pearly rhoades non-bulging NECK: Supple. No adenopathy or masses. No carotid bruits or JVD CHEST: Clear to auscultation. No respiratory distress. No wheezes rales or rhonchi HEART: Regular rate and rhythm. No murmur heard. Normal peripheral pulses. ABDOMEN: Soft, nontender, nondistended, normal active bowel sounds. EXTREMITIES: Normal range of motion. No edema. SKIN: Warm, dry, no rash. NEURO: No focal deficits. Alert and oriented x3. PSYCH: Normal mood and affect Course Vital Signs Vital signs: Vital Signs Temperature 98.8 F 06/04/25 20: Pulse Rate 67 06/04/25 20:26 Respiratory Rate 16 06/04/25 20:26 Blood Pressure 107/61 06/04/25 20:26 Pulse Oximetry 100 06/04/25 20:26 Oxygen Delivery Room Air 06/04/25 20:26 Temperature 98.8 F 06/04/25 20:26 Pulse Rate 67 06/04/25 20:26 Respiratory Rate 16 06/04/25 20:26 Blood Pressure 107/61 06/04/25 20:26 Pulse Oximetry 100 06/04/25 20:26 Oxygen Delivery Room Air 06/04/25 20:26 Medical Decision Making MDM Narrative Medical decision making narrative: 29-year-old female presenting with complaints of right eye pain. Patient states 30 minutes prior to arrival she was struck in the right eye with a toy while playing with her children. Patient states her eye bled and she felt as if she was going to pass out. Patient endorses a mild headache. Denies vision changes, sensitivity to light or sound, nausea or vomiting. Patient has significant lateral right eye conjunctival injection. Fluorescein eye exam showed no signs for corneal abrasion. Ocular tonometry revealed intra- ocular pressures of 16 mmHg in both eyes. Suspected conjunctival abrasion. Patient discharged home with Ocuflox drops and recommendation for close follow- up with her eye doctor and PCP. Medical Records Medical records reviewed: Yes I reviewed the external patient's medical records. Vital Signs Vital Signs: Vital Signs Temperature 98.8 F 06/04/25 20:26 Pulse Rate 67 06/04/25 20:26 Respiratory Rate 16 06/04/25 20:26 Blood Pressure 107/61 06/04/25 20:26 Pulse Oximetry 100 06/04/25 20:26 Oxygen Delivery Room Air 06/04/25 20:26 Temperature 98.8 F 06/04/25 20:26 Pulse Rate 67 06/04/25 20:26 Respiratory Rate 16 06/04/25 20:26 Blood Pressure 107/61 06/04/25 20:26 Pulse Oximetry 100 06/04/25 20:26 Oxygen Delivery Room Air 06/04/25 20:26 Discharge Plan Discharge Clinical Impression: Conjunctival abrasion Patient Disposition: Home Condition: Stable Additional Instructions: Use the prescribed antibiotic eyedrops as directed to prevent infection. Do not rub your eye. Avoid contact lenses until fully healed and cleared by your doctor. You may use cool compresses and artificial tears for comfort. Take Tylenol or ibuprofen for discomfort. Sunglasses can help with light sensitivity. Avoid usman, dirty, or [place] environments that could irritate the eye. Avoid swimming until your eyes heal. Do not drive if her vision is blurry or uncomfortable. Seek immediate care if you notice worsening pain or redness, pus-like discharge, vision changes or loss of vision, increasing light sensitivity, or the feeling of something is still stuck in her eye. Follow-up with your PCP or eye doctor closely. Patient Language: Romanian Prescriptions: New ofloxacin [Ocuflox] 0.3 % drops See Rx Instructions .ROUTE .COMPLEX Qty: 5 0RF Rx Instructions: put 1-2 drps into affected eye(s) every 2-4 h x 2 days, then 1-2 drps 4 times/day days 3-7 No Action ferrous sulfate 325 mg (65 mg iron) tablet 325 mg PO DAILY ondansetron 4 mg tablet,disintegrating 4 mg PO Q6H PRN (Reason: nausea and vomiting) Qty: 10 0RF docusate sodium [Colace] 100 mg capsule 100 mg PO BID Qty: 100 0RF Follow-up/Referrals: Parent,NICANOR Alcala [Primary Care Provider, Unknown]
[2025-06-05 01:37] VITALS: BP 110/66; PULSE 63; RESP 18; O2SAT 100
== END 2025-06-05 01:40 | disposition home or self-care (01) ==
PROVIDERS: PCP Physician Assistant
DX: S05.01XA Injury of conjunctiva and corneal abrasion without foreign body, right eye, initial encounter (principal); W22.8XXA Striking against or struck by other objects, initial encounter
CPT/HCPCS: 99283